=== PATIENT | female | born 1965 | race Caucasian/White ===

== ENCOUNTER 2024-12-01 07:57 | Outpatient (CLI) | payer BC, OTHER, SELFPAY ==
--- NOTE | ~2024-12-01 | MM_ITS ---
EXAMINATION: MM screening gill BI w vinayak HISTORY: Screening mammogram TECHNIQUE: Craniocaudal and mediolateral oblique 3-D tomosynthesis images were obtained and synthetic 2-D images were generated. CAD analysis was submitted and interpreted. COMPARISON: 01/23/2019 BREAST PARENCHYMAL COMPOSITION:Not Dense. There are scattered areas of fibroglandular density. FINDINGS: No suspicious mass, calcification, or architectural distortion are identified in either oneil ast to suggest malignancy. There has been no suspicious interval change. IMPRESSION: No mammographic evidence of malignancy. Recommend routine screening mammography in one year. BI-RADS Category 1: Negative Reviewed, dictated and finalized at location .
--- OUTSIDE RECORDS SUMMARY | 2024-12-01 08:13 | XMS_ITS | Clinical Summary ---
Author Organization [facility] [employer] Address [address] [place] [address] Care Team Providers Care Machine Hostler Name Role Phone Trinity Goldstein APRN-REGIONAL RECRUITER Primary Care Provider [phone] Source Comments [facility] [employer],non-owned Affiliates and Associated Physician Practices is amultiple site organization consisting of ambulatory clinics and hospital sitesin [place], [place], [place] and [place]. This disclosure is being madepursuant to the Care Everywhere program and may not contain all information available regarding this patient. Last updated 18.[facility] [employer] Allergies No known active allergies Medications * Be aware that medications may not be up to date on this document. Alwaysverify current medications with the patient. Medication Sig Dispensed Refills Start Date End Date Status omeprazole EC (PriLOSEC OTC) 20 MG tabletIndications:Hea rtburn Take 1 (one) tablet by mouth as needed for Heartburn Reasons: Heartburn Active Pediatric Multivitamins-Iron ([facility] Chewable Childrens Vitamin) 18 MG CHEW Active Immunizations Name Administration Dates Next Due Covid Pfizer primary monoval ent 12+ yr 0.3mL Purple cap 11/07/2020,10/14/2020 Family History Medical History Relation Name Comments Hypertension Father Arthritis - Osteo Mother Relation Name Status Comments Brother Alive Father Alive Mother Alive Sister Alive Social History Tobacco Use Types Packs/Day Years Used Date Smoking Tobacco: Never Smokeless Tobacco: Never Tobacco Cessation:Counseling Given: No Alcohol Use Standard Drinks/Week Comments Yes 3 (1 standard drink = 0.6 oz pur e alcohol) social weekly Sex and Gender Information Value Date Recorded Sex Assigned at Not on file Gender Identity Not on file Sexual Orientation Not on file Last Filed Vital Signs Vital Sign Reading Time Taken Comments Blood Pressure 120/84 02/05/2023 11:01 AM CDT Pulse 93 02/05/2023 11:01 AM CDT Temperature 36.7 C (98 F) 02/05/2023 11:01 AM CDT Respiratory Rate 18 02/05/2023 11:01 AM CDT Oxygen Saturation 98% 02/05/2023 11:01 AM CDT Inhaled Oxygen Concentration - - Weight 77.1 kg (170 lb) 02/05/2023 11:01 AM CDT Height 170.2 cm (5' 7 ) 02/05/2023 11:01 AM CDT Body Mass Index 26.63 02/05/2023 11:01 AM CDT Plan of Treatment Health Maintenance Due Date Last Done Comments COLOGUARD (AGES 45-75) - COLON CA SCREENING 1965 COLON MONITORING 1965 COLONOSCOPY - COLON CA SCREENING 1965 CT COLONOGRAPHY - COLON CA SCREENING 1965 Colorectal Cancer Screening 1965 FIT - COLON CA SCREENING 1965 FLEX SIG - COLON CA SCREENING 1965 PAP SMEAR 1965 HIV SCREENING 1980 DTAP/TDAP/TD VACCINES (1 - Tdap) 1984 HEPATITIS B VACCINE (1 of 3 - 19+ 3-dose series) 1984 PNEUMOCOCCAL VACCINE 50+ (1 of 1 - PCV) 2015 ZOSTER VACCINE (1 of 2) 2015 MAMMOGRAM 05/29/2022 05/29/2020, 07/21, 07/14/2017 COVID-19 VACCINE ( season) 2024 06/04/2022, 09/16/2021, 11/07/2020, Additional history exists INFLUENZA VACCINE (#1) 2024 06/27/2021 DEPRESSION SCREENING 09/20/2024 SCREENING FOR DIABETES 02/05/2026 , 02/05/2023, 07/13/2019, Additional history exists LIPID TESTING 02/06/2028 02/05/2023, 06/21, 07/29/2018, Additional history exists HEPATITIS C SCREENING Completed 02/05/2023 HIB VACCINE Aged Out No longer eligi ble based on patient's age to complete this topic HPV VACCINE Aged Out No longer eligi ble based on patient's age to complete this topic MENINGOCOCCAL (Group B) VACCINE SHARED DECISION-MAKING Aged Out No longer eligible based on patient's age to complete this topic MENINGOCOCCAL GROUPS A/C/Y/W VACCINE Aged Out No longer eligible based on patient's age to complete this topic PNEUMOCOCCAL VACCINE Aged Out No long er eligible based on patient's age to complete this topic Procedures Procedure Name Priority Date/Time Associated Diagnosis Comments COMPREHENSIVE METABOLIC PANEL Routine 02/05/2023 7:03 AM CDT Transplant donor evaluation LIPID PROFILE Routine 02/05/2023 7:03 AM CDT Transplant donor evaluation HEPATITIS C AB SCREEN RFLX NAAT QUANT STAT 02/05/2023 7:03 AM CDT Transplant donor evaluation MAMMO BILAT SCREENING Routine 05/29/2020 9:25 AM CDT Screening breast examination from Last 3 Months or Most Recently Relevant to Health Maintenance Results * HEPATITIS C AB SCREEN RFLX NAAT QUANT (02/05/2023 7:03 AM CDT) Hepatitis C Antibody Non-react ankit Non-reac tive 02/05/2023 9:06 AM CDT [facility] Comment:Hepatitis C Antibody screen indicates no serologic evidence of past or current infection with Hepatitis C Virus. Patients with unexplained liver disease who are immunocompromised or suspected of having acute Hepatitis C infection may benefit from Nucleic Acid Test (CARLOS) for Hepatitis C Viral RNA to confirm Hepatitis C status. Blood BLOOD SPECIMEN / Unknown Lab Venipuncture / Unknown 02/05/2023 7:03 AM CDT 02/05/2023 8:21 AM CDT Sean Archibald MD LAB - CHEMISTRY ORDERABLES [facility] [address] [place] [phone], [facility] [phone] * (ABNORMAL) COMPREHENSIVE METABOLIC PANEL (02/05/2023 7:03 AM [facility]) BUN 11 7 - 26 mg/dL 02/05/2023 8:57 AM [facility] Creatinine 0.67 0.56 - 0.96 mg/dL 02/05/2023 8:57 AM [facility] Sodium 140 136 - 145 mmol/L 02/05/2023 8:57 AM [facility] Potassium 3.7 3.5 - 4.5 mmol/L 02/05/2023 8:57 AM [facility] Chloride 108(H) 98 - 107 mmol/L 02/05/2023 8:57 AM [facility] CO2 21(L) 22 - 29 mmol/L 02/05/2023 8:57 AM [facility] Glucose 88 70 - 115 mg/dL 02/05/2023 8:57 AM [facility] Calcium 9.4 8.4 - 10.2 mg/dL 02/05/2023 8:57 AM [facility] Protein Total 6.5 6.0 - 8.3 g/dL 02/05/2023 8:57 AM [facility] Albumin 3.8 3.4 - 5.0 g/dL 02/05/2023 8:57 AM [facility] Bilirubin Total 0.7 0.2 - 1.2 mg/dL 02/05/2023 8:57 AM [facility] Alkaline Phosphatase 62 40 - 150 U/L 02/05/2023 8:57 AM [facility] ALT 30 5 - 55 U/L 02/05/2023 8:57 AM [facility] AST 22 5 - 34 U/L 02/05/2023 8:57 AM [facility] Anion Gap 15 8 - 18 02/05/2023 8:57 AM [facility] BUN/Creatinine Ratio 16 7 - 23 02/05/2023 8:57 AM [facility] Osmolality Calculated 289 270 - 300 mOsm/kg 02/05/2023 8:57 AM [facility] Albumin/Globulin Ratio 1.4 1.1 - 2.3 02/05/2023 8:57 AM [facility] eGFR by CKD-EPI >90 >=90 mL/min/1.7 3 m2 02/05/2023 8:57 AM [facility] Blood BLOOD SPECIMEN / Unknown Lab Venipuncture / Unknown 02/05/2023 7:03 AM CDT 02/05/2023 8:26 AM CDT Sean Archibald MD LAB - CHEMISTRY ORDERABLES Performing Organization Address City/[facility]/ZIP Co de Phone Number [address] [address], [facility] [phone] * (ABNORMAL) LIPID PROFILE (02/05/2023 7:03 AM CDT) Cholesterol Total 230(H) <200 mg/dL 02/05/2023 8:57 AM [facility] HDL 56 >40 mg/dL 02/05/2023 8:57 AM [facility] Comment: ATP III Classification of HDL Cholesterol: <40 mg/dL: Considered a major risk factor. >60 mg/dL: Considered a negative risk factor. LDL Calculated 143(H) <100 mg/dL 02/05/2023 8:57 AM [facility] Comment: ATP III Classification of LDL Cholesterol: <100 mg/dL: Optimal 100 - 129 mg/dL: Near Optimal/Above Optimal 130 - 159 mg/dL: Borderline High 160 - 189 mg/dL: High >190 mg/dL: Very High Triglycerides 157(H) <150 mg/dL 02/05/2023 8:57 AM [facility] Comment: ATP III Classification of Triglycerides: <150 mg/dL: Normal 150 - 199 mg/dL: Borderline High 200 - 400 mg/dL: High >500 mg/dL: Very High Blood BLOOD SPECIMEN / Unknown Lab Venipuncture / Unknown 02/05/2023 7:03 AM CDT 02/05/2023 8:26 AM CDT Sean Archibald MD LAB - CHEMISTRY ORDERABLES [facility] [address] [address], [facility] [phone] * MAMMO BILAT SCREENING (05/29/2020 9:25 AM CDT) Anatomical Region Laterality Modality Breast Bilateral Mammography 05/30/2020 10:3 7 AM CDT Impressions 05/30/2020 11:56 AM CDT IMPRESSION: No mammographic evidence of malignancy. ASSESSMENT: BI-RADS Category 1: Negative mammogram. RECOMMENDATION: Bilateral screening mammogram in one year. Report dictated by Wily Guido DO, MPH (vice president & general manager [employer] [place]). I, Dr. EZEQUIEL SERRANO M.D. have personally reviewed and interpreted this examination/study. This report was electronically signed by EZEQUIEL SERRANO M.D. on 05/30/2020 11:56 AM . Narrative 05/30/2020 11:56 AM CDT BILATERAL SCREENING MAMMOGRAM DATE: 05/29/2020 9:25 AM. COMPARISON: Multiple prior mammograms, most recently 2016 and from [facility] dated 2006. HISTORY: Screening mammogram. TECHNIQUE: Images were performed using 3D tomosynthesis images with reconstructed/synthetic 2D images and CAD analysis. BREAST COMPOSITION: There are scattered areas of fibroglandular density. FINDINGS: There is no suspicious mass, clustered microcalcification, or architectural distortion in either breast on 2D or 3D images. There has been no change in the mammographic appearance compared with the prior study. Jose J Corcoran MD MAMMO ORDERABLES from Last 3 Months or Most Recently Relevant to Health Maintenance Care Teams Machine Hostler Relationship Specialty Start Date End Date Trinity Goldstein, BUILDING TECH-REGIONAL RECRUITER [address] [place] [address] PCP - General Nurse Practitioner 02/05/23
--- OUTSIDE RECORDS SUMMARY | 2024-12-01 08:13 | XMS_ITS | Encounter Summary ---
Author Organization [facility] Address [address] [place] [address] Care Team Providers Care Heat Treater Name Role Phone Rayo Sierra MD Primary Care Provider [phone] Trinity Goldstein Primary Care Provider [phone] Encounter Details Date Type Department Care Team (Late st Contact Info) Description 06/20/2018 Lab Requisition [facility] [address] [place] [address] Unlisted, Ordering Provider, Social History Tobacco Use Types Packs/Day Years Used Date Smoking Tobacco: Never Assessed Sex and Gender Information Value Date Recorded Sex Assigned at Not on file Gender Identity Not on file Sexual Orientation Not on file documented as of this encounter Plan of Treatment Not on file documented as of this encounter Visit Diagnoses Not on filedocumented in this encounter Care Teams Heat Treater Relationship Specialty Start Date End Date Rayo Sierra MD [address] [place] [address] PCP - General Internal Medicine 11/27/22 02/04/23 Trinity Goldstein, MARGY-WELDING ROD COATER [address] [place] [phone] PCP - General Nurse Practitioner 02/05/23 documented as of this encounter
--- OUTSIDE RECORDS SUMMARY | 2024-12-01 08:13 | XMS_ITS | Referral Summary ---
Author Organization [facility] [employer] Address [address] [place] [address] Care Team Providers Care X Ray Equipment Mechanic Name Role Phone Trinity Goldstein APRN-REBAR FABRICATOR Primary Care Provider [phone] Source Comments [facility] [employer],non-owned Affiliates and Associated Physician Practices is amultiple site organization consisting of ambulatory clinics and hospital sitesin [place], [place], [place] and [place]. This disclosure is being madepursuant to the Care Everywhere program and may not contain all information available regarding this patient. Last updated 18.[facility] [employer] Allergies No known active allergies Medications * [...] ent 12+ yr 0.3mL Purple cap 11/07/2020,10/14/2020 Social History Tobacco Use Types Packs/Day Years [...] 02/05/2023 11:01 AM CDT Plan of Treatment Not on file Procedures Procedure Name Priority Date/Time Associated Diagnosis [...] ankit Non-reac tive 02/05/2023 9:06 AM CDT [facility] Comment:Hepatitis C Antibody screen indicates no [...] Sean Archibald MD LAB - CHEMISTRY ORDERABLES [facility] [address] [place] [address], [facility] [phone] * (ABNORMAL) COMPREHENSIVE METABOLIC PANEL (02/05/2023 7:[address] [facility]) BUN 11 7 - 26 mg/dL 02/05/2023 8:57 AM [facility] Creatinine 0.67 0.56 - 0.96 mg/dL 02/05/2023 8:57 AM [facility] Sodium 140 136 - 145 mmol/L 02/05/2023 8:57 AM [facility] Potassium 3.7 3.5 - 4.5 mmol/L 02/05/2023 8:57 AM [facility] Chloride 108(H) 98 - 107 mmol/L 02/05/2023 8:57 AM [facility] CO2 21(L) 22 - 29 mmol/L 02/05/2023 8:57 AM [facility] Glucose 88 70 - 115 mg/dL 02/05/2023 8:57 AM [facility] Calcium 9.4 8.4 - 10.2 mg/dL 02/05/2023 8:57 AM [facility] Protein Total 6.5 6.0 - 8.3 g/dL 02/05/2023 8:57 AM [facility] Albumin 3.8 3.4 - 5.0 g/dL 02/05/2023 8:57 AM [facility] Bilirubin Total 0.7 0.2 - 1.2 mg/dL 02/05/2023 8:57 AM [facility] Alkaline Phosphatase 62 40 - 150 U/L 02/05/2023 8:57 AM [facility] ALT 30 5 - 55 U/L 02/05/2023 8:57 AM [facility] AST 22 5 - 34 U/L 02/05/2023 8:57 AM [facility] Anion Gap 15 8 - 18 02/05/2023 8:57 AM [facility] BUN/Creatinine Ratio 16 7 - 23 02/05/2023 8:57 AM [facility] Osmolality Calculated 289 270 - 300 mOsm/kg 02/05/2023 8:57 AM [facility] Albumin/Globulin Ratio 1.4 1.1 - 2.3 02/05/2023 8:57 AM [facility] eGFR by CKD-EPI >90 >=90 mL/min/1.7 3 m2 02/05/2023 8:57 AM [facility] Blood BLOOD SPECIMEN / Unknown Lab Venipuncture / Unknown 02/05/2023 7:03 AM CDT 02/05/2023 8:26 AM CDT Sean Archibald MD LAB - CHEMISTRY ORDERABLES [facility] [address] [place] [address], [facility] [phone] * (ABNORMAL) LIPID PROFILE (02/05/2023 7:03 AM CDT) Cholesterol Total 230(H) <200 mg/dL 02/05/2023 8:57 AM [facility] HDL 56 >40 mg/dL 02/05/2023 8:57 AM [facility] Comment: ATP III Classification of HDL Cholesterol: <40 mg/dL: Considered a major risk factor. >60 mg/dL: Considered a negative risk factor. LDL Calculated 143(H) <100 mg/dL 02/05/2023 8:57 AM [facility] Comment: ATP III Classification of LDL Cholesterol: <100 mg/dL: Optimal 100 - 129 mg/dL: Near Optimal/Above Optimal 130 - 159 mg/dL: Borderline High 160 - 189 mg/dL: High >190 mg/dL: Very High Triglycerides 157(H) <150 mg/dL 02/05/2023 8:57 AM [facility] Comment: ATP III Classification of Triglycerides: <150 mg/dL: Normal 150 - 199 mg/dL: Borderline High 200 - 400 mg/dL: High >500 mg/dL: Very High Blood BLOOD SPECIMEN / Unknown Lab Venipuncture / Unknown 02/05/2023 7:03 AM CDT 02/05/2023 8:26 AM CDT Sean Archibald MD LAB - CHEMISTRY ORDERABLES [place] [address] [place] [address], [facility] [phone] * MAMMO BILAT SCREENING (05/29/2020 9:25 AM CDT) Anatomical Region Laterality Modality Breast Bilateral Mammography 05/30/2020 10:3 7 AM CDT Impressions 05/30/2020 11:56 AM CDT IMPRESSION: No mammographic evidence of malignancy. ASSESSMENT: BI-RADS Category 1: Negative mammogram. RECOMMENDATION: Bilateral screening mammogram in one year. Report dictated by Wily Guido DO, MPH (global consumer sector vice president). I, Dr. EZEQUIEL SERRANO M.D. have personally reviewed and interpreted this examination/study. This report was electronically signed by EZEQUIEL SERRANO M.D. on 05/30/2020 11:56 AM . Narrative 05/30/2020 11:56 AM CDT BILATERAL SCREENING MAMMOGRAM DATE: 05/29/2020 9:25 AM. COMPARISON: Multiple prior mammograms, most recently 2016 and from [facility] dated 2006. HISTORY: Screening [...] Recently Relevant to Health Maintenance Care Teams X Ray Equipment Mechanic Relationship Specialty Start Date End Date Trinity Goldstein APRN-REBAR FABRICATOR [address] [place] [address] PCP - General Nurse Practitioner 02/05/23
--- OUTSIDE RECORDS SUMMARY | 2024-12-01 08:13 | XMS_ITS | Encounter Summary ---
Author Organization [facility] Address [address] [place] [address] Care Team Providers Care Electro Mechanical Designer Name Role Phone Rayo Sierra MD Primary Care Provider [phone] Trinity Goldstein APRN-MASS SPECTROMETRY MANAGER Primary Care Provider [phone] Encounter Details Date Type Department Care Team (Late st Contact Info) Description 07/27/2018 Lab Requisition [facility] [address] [place] [phone] Unlisted, Ordering Provider, Social History Tobacco Use Types Packs/Day Years Used Date Smoking Tobacco: Never Assessed Sex and Gender Information Value Date Recorded Sex Assigned at Not on file Gender Identity Not on file Sexual Orientation Not on file documented as of this encounter Plan of Treatment Not on file documented as of this encounter Procedures Procedure Name Priority Date/Time Associated Diagnosis Comments GLUCOSE VITALITY Routine 07/29/2018 9:46 AM ER TECH HEMOGLOBIN A1C Routine 07/29/2018 9:46 AM ER TECH LIPID PROFILE Routine 07/29/2018 9:46 AM ER TECH documented in this encounter Results * HEMOGLOBIN A1C (07/29/2018 9:46 AM ER TECH) Hemoglobin A1c 5.3 4.4 - 6.3 % 07/29/2018 2:22 PM [facility] Estimated Average Glucose 105 mg/dL 07/29/2018 2:22 PM [facility] Comment: HbA1c Interpretation: Treatment target values recommended by ADA and other clinical organizations should be used to evaluate metabolic control in patients. Treatment Target Values: Normal : < 5.7% Pre-diabetes: 5.7-6.4% Diabetes: Equal to or greater than 6.5% Reference: [place] [employer] Standards of Care in Diabetes -2014 In patients 70 years and older consider HbA1c target range of 7.0-7.5% Reference: Diabetes Mellitus in Older People: Position Statement on behalf of the International Association of Gerontology and Geriatrics (IAGG), the Diabetes Working Libertarian for Older People (EDWPOP), and the International Task Force of Experts in Diabetes. Damian Carballo et al. J [place] [employer]. 2012 Test results diagnostic of diabetes should be repeated for confirmation. The Tosoh G8 assay for the measurement of HbA1c is a National Glycohemoglobin Standardization Program (NGSP)certified method. Results for patients with HbE disease should be interpreted with caution as this hemoglobinopathy has been shown to interfere with the Tosoh G8 assay. Blood BLOOD SPECIMEN / Unknown 07/29/2018 9:46 AM ER TECH 07/29/2018 12:17 PM ER TECH Ordering Provider Unlisted MD LAB - CHEM ISTRY ORDERABLES [address] [phone] * (ABNORMAL) LIPID PROFILE (07/29/2018 9:46 AM ER TECH) Cholesterol Total 272(H) <200 mg/dL 07/29/2018 12:47 PM [facility] HDL 86 >40 mg/dL 07/29/2018 12:47 PM [facility] Comment: ATP III Classification of HDL Cholesterol: <40 mg/dL: Considered a major risk factor. >60 mg/dL: Considered a negative risk factor. LDL Calculated 161(H) <100 mg/dL 07/29/2018 12:47 PM [facility] Comment: ATP III Classification of LDL Cholesterol: <100 mg/dL: Optimal 100 - 129 mg/dL: Near Optimal/Above Optimal 130 - 159 mg/dL: Borderline High 160 - 189 mg/dL: High >190 mg/dL: Very High Triglycerides 127 <150 mg/dL 07/29/2018 12:47 PM ER TECH [facility] Comment: ATP III Classification of Triglycerides: <150 mg/dL: Normal 150 - 199 mg/dL: Borderline High 200 - 400 mg/dL: High >500 mg/dL: Very High Blood BLOOD SPECIMEN / Unknown 07/29/2018 9:46 AM ER TECH 07/29/2018 12:17 PM ER TECH Ordering Provider Unlisted LAB - CHEM ISTRY ORDERABLES [address] [phone] * GLUCOSE VITALITY (07/29/2018 9:46 AM ER TECH) Glucose 94 70 - 115 mg/dL 07/29/2018 12:39 PM ER TECH [facility] Blood BLOOD SPECIMEN / Unknown 07/29/2018 9:46 AM ER TECH 07/29/2018 12:17 PM ER TECH Ordering Provider Unlisted LAB - CHEM ISTRY ORDERABLES [address] [phone] documented in this encounter Visit Diagnoses Not on filedocumented in this encounter Care Teams Electro Mechanical Designer Relationship Specialty Start Date End Date Rayo Sierra MD [address] [place] [phone] PCP - General Internal Medicine 11/27/22 02/04/23 Trinity Goldstein, POLE CLASSIFIER-MASS SPECTROMETRY MANAGER [address] [place] [phone] PCP - General Nurse Practitioner 02/05/23 documented as of this encounter
--- OUTSIDE RECORDS SUMMARY | 2024-12-01 08:13 | XMS_ITS | Patient Health Summary ---
Author Organization [facility] Address [address] [address] Care Team Providers Care Substitute Crossing Guard Name Role Phone Trinity Goldstein APRN-MICHAEL Primary Care Provider [phone] Note from [facility],non-owned Affiliates and Associated Physician Practices is amultiple site organization consisting of ambulatory clinics and hospital sitesin [place], [place], [place] and [place]. This disclosure is being madepursuant to the Care Everywhere program and may not contain all information available regarding this patient. Last updated 18.[facility] Allergies No known active allergies Medications * Be aware that medications may not be up to date on this document. Alwaysverify current medications with the patient. * omeprazole EC (PriLOSEC OTC) 20 MG tablet Take 1 (one) tablet by mouth as needed for Heartburn Reasons: Heartburn * Pediatric Multivitamins-Iron ([employer] Chewable Childrens Vitamin) 18 MG CHEW Immunizations * Covid Pfizer primary monovalent 12+ yr 0.3mL Purple cap(Given 11/07/2020, 10/14/2020) Social History Tobacco Use Types Packs/Day Years [...] Mass Index 26.63 02/05/2023 11:01 AM CDT Procedures * CARDIAC EKG ORDER(Performed 02/10/2023) * ECHO STRESS EXERCISE COLOR FLOW AND DOPPLER W CONTRAST(Performed 02/05/2023) Performed for Transplant donor evaluation * CT ANGIO ABDOMEN PELVIS(Performed 02/05/2023) Performed for Transplant donor evaluation * CREATININE - POCT INTERFACED(Performed 02/05/2023) * TYPE + SCREEN PANEL(Performed 02/05/2023) Performed for Transplant donor evaluation * CYSTATIN C REFLEX(Performed 02/05/2023) Performed for Transplant donor evaluation * CREATININE BLOOD(Performed 02/05/2023) Performed for Transplant donor evaluation * [place] VIRUS ANTIBODY IGG/IGM PANEL(Performed 02/05/2023) Performed for Transplant donor evaluation * URINE DRUG SCREEN IMMUNOASSAY(Performed 02/05/2023) Performed for Transplant donor evaluation * URINALYSIS W/MICROSCOPIC NO CULTURE(Performed 02/05/2023) Performed for Transplant donor evaluation * URIC ACID BLOOD(Performed 02/05/2023) Performed for Transplant donor evaluation * TRYPANOSOMA ANTIBODY IGG(Performed 02/05/2023) Performed for Transplant donor evaluation * SYPHILIS ANTIBODY CASCADING REFLEX(Performed 02/05/2023) Performed for Transplant donor evaluation * STRONGYLOIDES ANTIBODY IGG(Performed 02/05/2023) Performed for Transplant donor evaluation * CREATININE CLEARANCE URINE(Performed 02/05/2023) Performed for Transplant donor evaluation * QUANTIFERON-TB GOLD PLUS 4-TUBE(Performed 02/05/2023) Performed for Transplant donor evaluation * PTT [facility](Performed 02/05/2023) Performed for Transplant donor evaluation * PT-INR [facility](Performed 02/05/2023) Performed for Transplant donor evaluation * PHOSPHORUS BLOOD(Performed 02/05/2023) Performed for Transplant donor evaluation * NICOTINE + METABOLITES BLOOD(Performed 02/05/2023) Performed for Transplant donor evaluation * MICROALB/CREAT RATIO URINE RANDOM PANEL(Performed 02/05/2023) Performed for Transplant donor evaluation * LIPID PROFILE(Performed 02/05/2023) Performed for Transplant donor evaluation * HIV/HCV/HBV CARLOS DONOR(Performed 02/05/2023) Performed for Transplant donor evaluation * HIV 1/0/2 RFLX TO WB DONOR(Performed 02/05/2023) Performed for Transplant donor evaluation * HEPATITIS C AB SCREEN RFLX NAAT QUANT(Performed 02/05/2023) Performed for Transplant donor evaluation * HEPATITIS B SURFACE ANTIGEN W RFLX CONFIRMATION(Performed 02/05/2023) Performed for Transplant donor evaluation * HEPATITIS B SURFACE ANTIBODY(Performed 02/05/2023) Performed for Transplant donor evaluation * HEPATITIS B CORE ANTIBODY TOTAL(Performed 02/05/2023) Performed for Transplant donor evaluation * HEMOGLOBIN A1C(Performed 02/05/2023) Performed for Transplant donor evaluation * ALEKSEY-VARGAS VIRUS AB VIRAL CAPSID IGG/IGM(Performed 02/05/2023) Performed for Transplant donor evaluation * CYTOMEGALOVIRUS ANTIBODY IGM BLOOD(Performed 02/05/2023) Performed for Transplant donor evaluation * CYTOMEGALOVIRUS ANTIBODY IGG BLOOD(Performed 02/05/2023) Performed for Transplant donor evaluation * CYSTATIN C WITH EGFR(Performed 02/05/2023) Performed for Transplant donor evaluation * COMPREHENSIVE METABOLIC PANEL(Performed 02/05/2023) Performed for Transplant donor evaluation * ALCOHOL ETHYL BLOOD(Performed 02/05/2023) Performed for Transplant donor evaluation * CULTURE URINE(Performed 02/05/2023) Performed for Transplant donor evaluation * SARS-COV-2 (COVID-19) IN HOUSE(Performed 06/12/2020) Performed for Exposure to SARS-associated coronavirus * MAMMO BILAT SCREENING(Performed 05/29/2020) Performed for Screening breast examination * HEMOGLOBIN A1C(Performed 07/13/2019) * LIPID PROFILE(Performed 07/13/2019) * GLUCOSE VITALITY(Performed 07/13/2019) * HEMOGLOBIN A1C(Performed 07/29/2018) * LIPID PROFILE(Performed 07/29/2018) * GLUCOSE VITALITY(Performed 07/29/2018) * US BREAST BILATERAL LTD(Performed 08/06/2017) * MAMMO BILAT DIAGNOSTIC(Performed 08/06/2017) * HEMOGLOBIN A1C(Performed 07/16/2017) * VITALITY SCREEN (BEAKER)(Performed 07/16/2017) * LIPID PROFILE(Performed 07/16/2017) * GLUCOSE VITALITY(Performed 07/16/2017) * MAMMO BILAT SCREENING(Performed 07/14/2017) Results * CARDIAC EKG ORDER (02/10/2023 2:03 PM CDT) Narrative 02/10/2023 2:03 PM CDT Ordered by an unspecified provider. Scanned Document CARDIAC SERVICES ORD ERABLES * ECHO STRESS EXERCISE COLOR FLOW AND DOPPLER W CONTRAST (02/05/2023 9:58 AM CDT) Target HR 139 bpm [facility] Max Age Predicted HR 163 bpm [facility] Base ST Depression (mm) 0 mm [facility] Angina Index [address] [facility] [address] Depression (mm) 0 mm [facility] Anatomical Region Laterality Modality Ultrasound Narrative 02/05/2023 3:04 PM CDT Left Ventricle: Left ventricle size is normal. Normal wall thickness. Normal systolic function with a visually estimated EF of 65 - 70%. Normal wall motion. Diastolic function is indeterminate due to discordant parameters. Right Ventricle: Normal systolic function. Tricuspid Valve: Trace regurgitation. The pulmonary artery systolic pressure is normal. Stress ECG: No clinically relevant ST deviation was noted. Portions of the ECG were uninterpretable due to an artifact. Stress: A Paul protocol stress test was performed. Overall, the patient's exercise capacity was normal for their age. The patient achieved the target heart rate. Blood pressure demonstrated a normal response and heart rate demonstrated a normal response to stress. The patient's heart rate recovery was normal. Post-stress: The left ventricle systolic function is normal post-stress. The post-stress echo showed normal wall motion. Post-stress Impression: This study shows a low prognostic risk. The ECG and Echo portions of the stress study are concordant with no evidence of inducible myocardial ischemia. Left Ventricle Left ventricle size is normal. Normal wall thickness. Normal systolic function with a visually estimated EF of 65 - 70%. Normal wall motion. Diastolic function is indeterminate due to discordant parameters. Right Ventricle Right ventricle size is normal. Normal systolic function. Left Atrium Left atrium size is normal. Right Atrium Right atrium size is normal. IVC/SVC IVC diameter is greater than 21 mm and decreases greater than 50% during inspiration; therefore the estimated right atrial pressure is intermediate (~8 mmHg). Mitral Valve Valve structure is normal. No restricted motion. No regurgitation. No stenosis. Tricuspid Valve Valve structure is normal. No restricted motion. Trace regurgitation. The pulmonary artery systolic pressure is normal. No stenosis. Aortic Valve Valve structure is trileaflet. No restricted motion. No regurgitation. No stenosis. Pulmonic Valve Valve structure is normal. No restricted motion. Trace regurgitation. No stenosis. Pulmonary artery was not well visualized. Ascending Aorta Normal sized sinus of Valsalva (aortic root) and ascending aorta. Pericardium No pericardial effusion. Study Details Study quality was good. A complete 2D, color Doppler, spectral Doppler, strain and M-mode echocardiogram was performed. The apical, parasternal, subcostal and suprasternal views were obtained. Definity ultrasound enhancing agent used. Patient exhibited sinus rhythm. Resting ECG ECG is normal. Resting ECG shows no clinically relevant ST-segment deviation. The ECG shows sinus bradycardia. Stress Findings A Paul protocol stress test was performed. Overall, the patient's exercise capacity was normal for their age. The patient experienced no angina during the test. The patient achieved the target heart rate. The patient reported no symptoms during the stress test. Blood pressure demonstrated a normal response and heart rate demonstrated a normal response to stress. The patient's heart rate recovery was normal. Stress ECG No clinically relevant ST deviation was noted. Arrhythmias during stress: rare PVCs. There were no arrhythmias during recovery. The ECG was negative for ischemia. Portions of the ECG were uninterpretable due to an artifact. Echo Post Stress Left ventricle cavity appears normal post-stress. The left ventricle systolic function is normal post-stress. The post-stress echo showed normal wall motion. Study Impression This study shows a low prognostic risk. The ECG and Echo portions of the stress study are concordant with no evidence of inducible myocardial ischemia. Wall Scoring Baseline Score Index: 1.00 The left ventricular wall motion is normal. Wall Scoring Post Stress Score Index: 1.00 The left ventricular wall motion is normal. Sean Archibald MD ECHO CUPID * CT ANGIO ABDOMEN PELVIS (02/05/2023 7:31 AM CDT) Anatomical Region Laterality Modality Abdomen, Pelvis Computed Tomogra phy 02/05/2023 8:0 9 AM CDT Impressions 02/05/2023 11:25 AM CDT Impression: 1.No acute process identified in the abdomen or pelvis. 2.Kidney measurements provided for potential kidney donor. > Dictated by Felice Whyte DO (vice president medical affairs). > Dictated by Felice Whyte MD ([employer]) 02/05/2023 8:09 AM I, Geo Hawkins MD have personally reviewed and interpreted this examination/study. > Interpreting Provider: Geo Hawkins MD on 02/05/2023 11:25 AM Narrative 02/05/2023 11:25 AM CDT PROCEDURE: CT ANGIO ABDOMEN PELVIS, DATE/TIME OF EXAM: 02/05/2023 7:33 AM, LOCATION [facility] INDICATION: Z00.5: Transplant donor evaluation COMPARISON: None. TECHNIQUE: CT of the abdomen and pelvis was performed prior to and following the uneventful administration of 100 mL of Isovue 370 intravenous contrast according to an angiographic protocol. Three dimensional postprocessing was performed by the technologist and sent to the workstation for review. Findings: Abdominal aorta: There is no aortic dissection, intramural hematoma, penetrating atherosclerotic ulcer, or aneurysm. The aorta is normal in course and caliber. Abdominal aortic branches: Celiac axis: Patent without significant focal stenosis. Superior mesenteric artery: Patent without significant focal stenosis. Inferior mesenteric artery: Patent without significant focal stenosis. Right renal artery: Patent without significant focal stenosis. Left renal artery: Patent without significant focal stenosis. Right common iliac artery: Patent without significant focal stenosis. Left common iliac artery: Patent without significant focal stenosis. Lower Chest: Minimal dependent atelectasis bilaterally. Liver: Multiple subcentimeter hypoattenuating hepatic lesions are too small to characterize, but likely represent hepatic cysts. There is focal fatty infiltration along the falciform ligament anterior to the liver in hepatic segment IVb. There is also fatty infiltration in the periportal area within hepatic segment 4A. Gallbladder and Bile Ducts: Normal. Spleen: Normal. Pancreas: Normal. Adrenals: Normal. Kidneys: Right Kidney: Number of arteries: 1 Number of veins: 1 Number of ureters: 1 Kidney height: 11.5 cm Kidney length: 5.1 cm Kidney width: 4.4 cm Kidney volume (mL/cc): 177 mL Renal artery has early bifurcation(<10mm from aorta): No Left Kidney: Number of arteries: 2 Number of veins: 1 Number of ureters: 1 Kidney height: 10.2 cm Kidney length: 5.0 cm Kidney width: 4.9 cm Kidney volume (mL/cc): 177 mL Renal artery has early bifurcation(<10mm from aorta): No Gastrointestinal: The stomach and visualized loops of large and small bowel are unremarkable. Normal appendix. Mesentery/Peritoneum/Retroperitoneum: No free intraperitoneal air. No free fluid in the abdomen or pelvis. Bladder: The bladder is partially distended. Reproductive Organs: The uterus is normal. Bones: Bone windows demonstrate no suspicious lytic or blastic lesions. The visible osseous structures are intact. Soft tissues: Normal. Procedure Note Geo Hawkins MD - 02/05/2023 PROCEDURE: CT ANGIO ABDOMEN PELVIS, DATE/TIME OF EXAM: 02/05/2023 7:33AM, LOCATION [facility] INDICATION: Z00.5: Transplant donor evaluation COMPARISON: None. TECHNIQUE: CT of the abdomen and pelvis was performed prior to and following the uneventful administration of 100 mL of Isovue 370intravenous contrast according to an angiographic protocol. Three dimensional postprocessing was performed by the technologist and sent to the workstation for review. Findings: Abdominal aorta: There is no aortic dissection, intramural hematoma, penetrating atherosclerotic ulcer, or aneurysm. The aorta is normal in course and caliber. Abdominal aortic branches: Celiac axis: Patent without significant focal stenosis. Superior mesenteric artery: Patent without significant focal stenosis. Inferior mesenteric artery: Patent without significant focal stenosis. Right renal artery: Patent without significant focal stenosis. Left renal artery: Patent without significant focal stenosis. Right common iliac artery: Patent without significant focal stenosis. Left common iliac artery: Patent without significant focal stenosis. Lower Chest: Minimal dependent atelectasis bilaterally. Liver: Multiple subcentimeter hypoattenuating hepatic lesions are too small to characterize, but likely represent hepatic cysts. There is focal fatty infiltration along the falciform ligament anterior to the liver inhepatic segment IVb. There is also fatty infiltration in the periportal areawithin hepatic segment 4A. Gallbladder and Bile Ducts: Normal. Spleen: Normal. Pancreas: Normal. Adrenals: Normal. Kidneys: Right Kidney: Number of arteries: 1 Number of veins: 1 Number of ureters: 1 Kidney height: 11.5 cm Kidney length: 5.1 cm Kidney width: 4.4 cm Kidney volume (mL/cc): 177 mL Renal artery has early bifurcation(<10mm from aorta): No Left Kidney: Number of arteries: 2 Number of veins: 1 Number of ureters: 1 Kidney height: 10.2 cm Kidney length: 5.0 cm Kidney width: 4.9 cm Kidney volume (mL/cc): 177 mL Renal artery has early bifurcation(<10mm from aorta): No Gastrointestinal: The stomach and visualized loops of large and small bowel areunremarkable. Normal appendix. Mesentery/Peritoneum/Retroperitoneum: No free intraperitoneal air. No free fluid in the abdomen or pelvis. Bladder: The bladder is partially distended. Reproductive Organs: The uterus is normal. Bones: Bone windows demonstrate no suspicious lytic or blastic lesions. The visible osseous structures are intact. Soft tissues: Normal. Impression: 1.No acute process identified in the abdomen or pelvis. 2.Kidney measurements provided for potential kidney donor. > Dictated by Felice Whyte DO (vice president medical affairs). > Dictated by Felice Whyte MD ([employer]ill Layer) 02/05/2023 8:09 AM IGeo MD have personally reviewed and interpreted this examination/study. > Interpreting Provider: Geo Hawkins MD on 02/05/2023 11:25 AM Sean Archibald MD CT ORDERABLES * CREATININE - POCT INTERFACED (02/05/2023 7:12 AM CDT) Creatinine POCT 0.67 0.30 - 1.30 mg/dL 02/05/2023 7:15 AM CDT [facility] eGFR >90 >90 mL/min/1.7 3 m2 02/05/2023 7:15 AM CDT [facility] Blood BLOOD SPECIMEN / Unknown 02/05/2023 7:12 AM CDT 02/05/2023 7:15 AM CDT Sean Archibald MD LAB - POINT OF CARE ORDERABLES [facility] [address] [place] [address] [phone] * CYSTATIN C REFLEX (02/05/2023 7:03 AM CDT) eGFR by Cystatin C 84 >=60 mL/min/BSA 02/06/2023 5:23 PM CDT [employer] ([facility]) Comment: INTERPRETIVE INFORMATION: eGFR by Cystatin C eGFR by Cystatin C was calculated using the CKD-EPI equation. Stage Description eGFR Range 1.......Normal or increased eGFR.......90 or Greater 2.......Mildly decreased eGFR..........60-89 3.......Moderately decreased eGFR......30-59 4.......Severely decreased eGFR........15-29 5.......Kidney Failure.................Less than 15 Performed by [employer], [address] [place] [address] [email or web address], Martin Mao MD, PHD, Lab. Director Blood BLOOD SPECIMEN / Unknown Lab Venipuncture / Unknown 02/05/2023 7:03 AM CDT 02/05/2023 8:21 AM CDT Sean Archibald MD LAB - CHEMISTRY ORDERABLES Performing Organization Address City/State/[facility] Co de Phone Number [employer] [facility]) [address] [place] [address] * CYSTATIN C WITH REFLEX TO EGFR (02/05/2023 7:03 AM CDT) Cystatin C 0.9 0.5 - 1.2 mg/L 02/06/2023 5:23 PM CDT [employer] ([facility]) Comment: Performed By: [employer] [address] [place] [address] Credit Control Clerk: Martin Mao MD, PhD Blood BLOOD SPECIMEN / Unknown Lab Venipuncture / Unknown 02/05/2023 7:03 AM CDT 02/05/2023 8:21 AM CDT Sean Archibald MD LAB - CHEMISTRY ORDERABLES [facility] ([facility]) [address] [place] [address], [facility] * PTT [facility] (02/05/2023 7:03 AM CDT) APTT 23.7 23.0 - 38.4 Seconds 02/05/2023 8:49 AM CDT [facility] Comment:Suggested therapeuti c range for full dose I.V. unfractionated heparin therapy for venous thromboembolism is 71 to 109 seconds. Blood BLOOD SPECIMEN / Unknown Lab Venipuncture / Unknown 02/05/2023 7:03 AM CDT 02/05/2023 8:26 AM CDT Sean Archibald MD LAB - COAGULATI ON ORDERABLES Performing Organization Address [facility] Co de Phone Number [address] [address], [facility] [phone] * PT-INR [facility] (02/05/2023 7:03 AM CDT) PT 13.5 12.1 - 14.8 Seconds 02/05/2023 8:49 AM CDT [facility] INR 1.0 See Comment 02/05/2023 8:49 AM CDT [facility] Comment:The suggested therap eutic range for standard coumadin (warfarin) therapy is an INR of 2.0-3.0. For high-risk patients (Mechanical Mitral Valve Prosthesis, etc.), the suggested prophylactic therapeutic range is an INR of 2.5-3.5. Blood BLOOD SPECIMEN / Unknown Lab Venipuncture / Unknown 02/05/2023 7:03 AM CDT 02/05/2023 8:26 AM CDT Sean Archibald MD LAB - COAGULATI ON ORDERABLES Performing Organization Address City/[facility]/ZIP Co de Phone Number [address] [address] [phone] * (ABNORMAL) ALEKSEY-VARGAS VIRUS AB VIRAL CAPSID IGG/IGM (02/05/2023 7:03 AM CDT) Pathologist [facility] Aleksey-Vargas Viral Capsid Antigen Antibody IgG >600.0(H) 0.0 - 17.9 U/mL 02/08/2023 3:08 PM CDT [facility] ([facility]) Comment: Negative <18.0 Equivocal 18.0 - 21.9 Positive >21.9 Aleksey-Vargas Viral Capsid Antigen Antibody IgM <36.0 0.0 - 35.9 U/mL 02/08/2023 3:08 PM CDT [facility] ([facility]) Comment: Negative <36.0 Equivocal 36.0 - 43.9 Positive >43.9 Blood BLOOD SPECIMEN / Unknown Lab Venipuncture / Unknown 02/05/2023 7:03 AM CDT 02/05/2023 8:22 AM CDT Narrative [facility] ([facility]) - 02/08/2023 3:08 PM CDT Performed at: 01 - [facility] [address] [place], [place] [id number] [employer] Utility Worker: Robert Melendez PhD, Phone: [phone] Sean Archibald MD LAB - SEROLOGY ORDERABLES [facility]) [address] [place] [address] * HIV/HCV/HBV [facility]LOS DONOR (02/05/2023 7:03 AM CDT) Pathologist [facility] Donor HIV-1/HCV/HBV Comment Non Reactive 02/06/2023 7:07 PM CDT [facility] ([facility]) Comment: Non-Reactive for HIV-1 and HIV-2 RNA Non-Reactive for HCV RNA Non-Reactive for HBV DNA Test performed with Jimena MPX kit. Blood BLOOD SPECIMEN / Unknown Lab Venipuncture / Unknown 02/05/2023 7:03 AM CDT 02/05/2023 8:22 AM CDT Narrative [facility] ([facility]) - 02/06/2023 7:07 PM CDT Performed at: [facility] [employer] [address] [place] [id number] [employer] Utility Worker: Wander Jean [facility], Phone: [phone] Sean Archibald MD LAB - CHEMISTRY ORDERABLES Performing Organization Address [facility] Co de Phone Number [facility] ([facility]) [address] [place] [address] * HIV 1/0/2 RFLX TO WB DONOR (02/05/2023 7:03 AM CDT) Pathologist [facility] HIV-1/HIV-2 Ab + p24 Ag Negative Negative 02/06/2023 7:07 PM CDT [facility] ([facility]) Comment: Test performed with [employer] [place] s HIV Ag/Ab kit. The HIV Ag/Ab Combo Kit can detect: HIV-1 (groups M and O)/HIV-2 Ab, HIV-1 p24 Ag Blood BLOOD SPECIMEN / Unknown Lab Venipuncture / Unknown 02/05/2023 7:03 AM CDT 02/05/2023 8:22 AM CDT [facility]) - 02/06/2023 7:07 PM CDT Performed at: - [employer] [address] [place] [id number] [employer] Utility Worker: Wander Jean [facility], Phone: [phone] Sean Archibald MD LAB - CHEMISTRY ORDERABLES Performing Organization Address City/[facility] Co de Phone Number [facility] ([facility]) [address] [place] [address] * HEPATITIS C AB SCREEN RFLX NAAT QUANT (02/05/2023 7:03 AM CDT) Pathologist [facility] Hepatitis C Antibody Non-react ankit Non-reac tive 02/05/2023 9:06 AM CDT [facility] Comment:Hepatitis C Antibody screen indicates no [...] LAB - CHEMISTRY ORDERABLES Performing Organization Address [facility] Co de Phone Number [address] [address], [facility] [phone] * SYPHILIS ANTIBODY CASCADING REFLEX (02/05/2023 7:03 AM CDT) Treponema pallidum Antibody Non-react ankit Non-react ankit 02/05/2023 9:06 AM CDT [facility] Comment: No Laboratory evidence of syphilis infection. Note: Circulating antibodies may be low or undetectable in early infection. If recent exposure is suspected, re-draw sample in 2-4 weeks and repeat testing. Blood BLOOD SPECIMEN / Unknown Lab Venipuncture / Unknown 02/05/2023 7:03 AM CDT 02/05/2023 8:21 AM CDT Sean Archibald MD LAB - SEROLOGY ORDERABLES Performing Organization Address [facility] Co de Phone Number [address] [address], [facility] [phone] * TRYPANOSOMA ANTIBODY IGG (02/05/2023 7:03 AM CDT) Pathologist [facility] Trypan. cruzi IgG 0.4 <=1.0 IV 023 9:06 PM CDT [facility] ([facility]) Comment: INTERPRETIVE INFORMATION: Trypanosoma cruzi Ab, IgG 1.0 IV or less......Negative - No significant level of Trypanosoma cruzi IgG antibody detected. 1.1 IV..............Equivocal - Questionable presence of Trypanosoma cruzi IgG antibody detected. Repeat testing in 10-14 days may be helpful. 1.2 IV or greater...Positive - IgG antibodies to Trypanosoma cruzi detected, which may suggest current or past infection. This assay should not be used for blood donor screening or associated re-entry protocols, or for screening Human Cell and Cellular Tissue-Based Products (HCT/Ps). According to the CDC, at least two different serologic tests should be used to make the laboratory diagnosis of chronic Chagas Disease, as no single serologic test is sufficiently sensitive and specific. Performed By: [facility] [address] [place] [address] Credit Control Clerk: Martin Mao MD, PhD Blood BLOOD SPECIMEN / Unknown Lab Venipuncture / Unknown 02/05/2023 7:03 AM CDT 02/05/2023 8:22 AM CDT Sean Archibald MD LAB - SEROLOGY ORDERABLES [facility] ([facility]) [address] [place] [address], [facility] * (ABNORMAL) URINALYSIS W/MICROSCOPIC NO CULTURE (02/05/2023 7:03 AM CDT) Color UA Yellow Straw, Yellow 02/05/2023 9:30 AM T [facility] Clarity UA Slt Cloudy(A) Clear 02/05/2023 9:30 AM [facility] Specific Mckenzie UA 1.051(H) 1.005 - 1.030 02/05/2023 9:30 AM [facility] pH UA 6.0 5.0 - 8.0 pH 02/05/2023 9:30 AM [facility] Protein UA Negative Negative 02/05/2023 9:30 AM [facility] Glucose UA Negative Negative 02/05/2023 9:30 AM T [facility] Ketone UA Negative Negative 02/05/2023 9:30 AM [facility] Bilirubin UA Negative Negative 02/05/2023 9:30 AM [facility] Blood UA 1+(A) Negative 02/05/2023 9:30 AM [facility] Nitrite UA Negative Negative 02/05/2023 9:30 AM [facility] Leukocyte Esterase Negative Negative 02/05/2023 9:30 AM [facility] Urobilinogen UA Negative Negative mg/dL 02/05/2023 9:30 AM CDT [facility] RBC UA 0-2 None Seen, 0-2, 3-5 /HPF 02/05/2023 9:30 AM CDT [facility] WBC UA 0-5 None Seen, 0-5 /HPF 02/05/2023 9:30 AM CDT [facility] Squamous Epithelial Cells UA 6-10(A) None Seen, 0-2, 3-5 /HPF 02/05/2023 9:30 AM CDT [facility] Urine URINE SPECIMEN OBTAINED BY CLEAN CATCH PROCEDURE / Unknown Collection / Unknown 02/05/2023 7:03 AM CDT 02/05/2023 8:24 AM CDT Narrative [facility] - 02/05/2023 9:30 AM CDT Sean Archibald MD LAB - URINALYSI S ORDERABLES Performing Organization Address [facility] Co de Phone Number [address] [phone] [phone] * QUANTIFERON-TB GOLD PLUS 4-TUBE (02/05/2023 7:03 AM CDT) QuantiFERON NIL 0.15 IU/mL 8:11 AM CDT [employer] ([facility]) Comment: Performed By: [employer] [address] [place] [id number] Credit Control Clerk: Martin Mao MD, PhD QuantiFERON TB Gold Plus Negative Negative 02/08/2023 8:11 AM CDT [employer] ([facility]) Comment: Interpretive Data: Quantiferon TB Gold Plus Interferon gamma release is measured for specimens from each of the four collection tubes. A qualitative result (Negative, Positive, or Indeterminate) is based on interpretation of the four values, NIL, MITOGEN minus NIL (MITOGEN-NIL), TB1 minus NIL (TB1-NIL), and TB2 minus NIL (TB2-NIL). The NIL value represents nonspecific reactivity produced by the patient specimen. The MITOGEN-NIL value serves as the positive control for the patient specimen, demonstrating successful lymphocyte activity. The TB1-NIL tube specifically detects CD4+ lymphocyte reactivity, specifically stimulated by the TB1 antigens. The TB2-NIL tube detects both CD4+ and CD8+ lymphocyte reactivity, stimulated by TB2 antigens. An overall Negative result does not completely rule out TB infection. A false-positive result in the absence of other clinical evidence of TB infection is not uncommon. Refer to: Updated Guidelines for Using Interferon Gamma Release Assays to Detect Mycobacterium tuberculosis Infection --- [place], 2010 (http://www.cdc.gov/mmwr/preview/mmwrhtml/ys8969i4.htm), for more information concerning test performance in low-prevalence populations and use in occupational screening. QuantiFERON Plus TB1 Minus NIL 0.00 0.00 - 0.34 IU/mL 02/08/2023 8:11 AM CDT [facility] ([facility]) QuantiFERON Plus TB2 Minus NIL 0.00 0.00 - 0.34 IU/mL 02/08/2023 8:11 AM CDT [facility]) QuantiFERON Mitogen Minus NIL >10.00 IU/mL 02/08/2023 8:11 AM CDT [facility] ([facility]) Blood BLOOD SPECIMEN / Unknown Lab Venipuncture / Unknown 02/05/2023 7:03 AM CDT 02/05/2023 8:21 AM CDT Sean Archibald MD LAB - CHEMISTRY ORDERABLES [facility]) [address] * URIC ACID BLOOD (02/05/2023 7:03 AM CDT) [facility] Uric Acid 5.6 2.6 - 6.0 mg/dL 02/05/2023 8:57 AM CDT [facility] Blood BLOOD SPECIMEN / Unknown Lab Venipuncture / Unknown 02/05/2023 7:03 AM CDT 02/05/2023 8:26 AM CDT Sean Archibald MD LAB - CHEMISTRY ORDERABLES [facility] [address] [place] [address], [facility] [phone] * WEST NILE VIRUS ANTIBODY IGG/IGM PANEL (02/05/2023 7:03 AM CDT) [facility] West Nile IgG Ab 0.35 <=1.29 IV 02/09/20 12:08 AM [facility] ([facility]) Comment: INTERPRETIVE INFORMATION: West Nile Virus Ab, IgG by IAN, Serum 1.29 IV or less ........ Negative - No significant level of West Nile virus IgG antibody detected. 1.30 - 1.49 IV ......... Equivocal - Questionable presence of West Nile virus IgG antibody detected. Repeat testing in 10-14 days may be helpful. 1.50 IV or greater ..... Positive - Presence of IgG antibody to West Nile virus detected, suggestive of current or past infection. This test is intended to be used as a semi-quantitative means of detecting West Nile virus-specific IgG in serum samples in which there is a clinical suspicion of West Nile virus infection. This test should not be used solely for quantitative purposes, nor should the results be used without correlation to clinical history or other data. Because other members of the Flaviviridae family, such as St.Johnny encephalitis virus, show extensive cross-reactivity with West Nile virus, serologic testing specific for these species should be considered. Seroconversion between acute and convalescent sera is considered strong evidence of current or recent infection. The best evidence for infection is a significant change on two appropriately timed specimens, where both tests are done in the same laboratory at the same time. West Nile IgM Ab 0.01 <=0.89 IV 02/09/20 12:08 AM [facility] [employer] ([facility]) Comment: INTERPRETIVE INFORMATION: West Nile Virus Ab, IgM by IAN, Serum 0.89 IV or less ...... Negative - No significant level of West Nile virus IgM antibody detected. 0.90-1.10 IV ......... Equivocal - Questionable presence of West Nile virus IgM antibody detected. Repeat testing in 10-14 days may be helpful. 1.11 IV or greater ... Positive - Presence of IgM antibody to West Nile virus detected, suggestive of current or recent infection. This test is intended to be used as a semi-quantitative means of detecting West Nile virus-specific IgM in serum samples in which there is a clinical suspicion of West Nile virus infection. This test should not be used solely for quantitative purposes, nor should the results be used without correlation to clinical history or other data. Because other members of the Flaviviridae family, such as St.Johnny encephalitis virus, show extensive cross-reactivity with West Nile virus, serologic testing specific for these species should be considered. Seroconversion between acute and convalescent sera is considered strong evidence of current or recent infection. The best evidence for infection is a significant change on two appropriately timed specimens, where both tests are done in the same laboratory at the same time. Performed By: [employer] [address] [place] [address] Credit Control Clerk: Martin Mao MD, PhD Blood BLOOD SPECIMEN / Unknown Lab Venipuncture / Unknown 02/05/2023 7:03 AM CDT 02/05/2023 8:22 AM CDT Sean Archibald MD LAB - CHEMISTRY ORDERABLES [facility]) [address] [place] [address], [facility] * STRONGYLOIDES ANTIBODY IGG (02/05/2023 7:03 AM CDT) [facility] Strongyloides Antibody IgG 0.1 <=0.9 IV 02/07/2023 8:54 PM CDT [facility] ([facility]) Comment: INTERPRETIVE INFORMATION: Strongyloides Ab, IgG by IAN 0.9 IV or less....... Negative - No significant level of Strongyloides IgG antibody detected. 1.0 IV................Equivocal - The Strongyloides IgG antibody result is borderline and therefore inconclusive. Recommend retesting the patient in 2-4 weeks, if clinically indicated. 1.1 IV or greater ... Positive - IgG antibodies to Strongyloides detected, which may suggest current or past infection. False-positive results may occur with prior exposure to other helminth infections. Testing low-prevalence populations may also result in false-positive results. Performed By: [employer] [address] [place] [address] Credit Control Clerk: Martin Mao MD, PhD Blood BLOOD SPECIMEN / Unknown Lab Venipuncture / Unknown 02/05/2023 7:03 AM CDT 02/05/2023 8:21 AM CDT Sean Archibald MD LAB - SEROLOGY ORDERABLES [address] * MICROALB/CREAT RATIO URINE RANDOM PANEL (02/05/2023 7:03 AM CDT) Albumin Random Urine 9.9 Not Established ug/mL 02/05/2023 8:53 AM CDT [facility] Creatinine Urine 78 Not Established mg/dL 02/05/2023 8:53 AM CDT [facility] Urine Albumin/Creati nine Ratio 13 <30 mg/g 02/05/2023 8:53 AM CDT [facility] Urine URINE SPECIMEN OBTAINED BY CLEAN CATCH PROCEDURE / Unknown Collection / Unknown 02/05/2023 7:03 AM CDT 02/05/2023 8:24 AM CDT Sean Archibald MD LAB - URINE SINDHU HUNTER ORDERABLES [facility] [address] [place] [address], [facility] [phone] * CYTOMEGALOVIRUS ANTIBODY IGM BLOOD (02/05/2023 7:03 AM CDT) Cytomegalovirus Antibody IgM <30.0 0.0 - 29.9 AU/mL 02/06/2023 10:09 AM CDT [facility] ([facility]) Comment: Negative <30.0 Equivocal 30.0 - 34.9 Positive >34.9 A positive result is generally indicative of acute infection, reactivation or persistent IgM production. Blood BLOOD SPECIMEN / Unknown Lab Venipuncture / Unknown 02/05/2023 7:03 AM CDT 02/05/2023 8:21 AM CDT Narrative [facility] ([facility]) - 02/06/2023 10:09 AM CDT Performed at: [address] [place] [address] [address] [place], [place] [id number] [employer] Utility Worker: Robert Melendez PhD, Phone: [phone] Sean Archibald MD LAB - CHEMISTRY ORDERABLES [facility] ([facility]) [address] [place] [address], [facility] * (ABNORMAL) CYTOMEGALOVIRUS ANTIBODY IGG BLOOD (02/05/2023 7:03 AM CDT) [facility] Cytomegalovirus Antibody IgG 7.20(H) <=0.70 U/mL 02/07/2023 12:14 AM CDT [employer] ([facility]) Comment: INTERPRETIVE INFORMATION: Cytomegalovirus Antibody, IgG 0.59 U/mL or less......... Not Detected 0.6 - 0.69 U/mL........... Indeterminate-Repeat testing in 10-14 days may be helpful. 0.70 U/mL or greater...... Detected In immunocompromised patients, CMV serology (IgG or IgM antibody titers) may not be reliable and may be misleading in the diagnosis of acute or reactivation CMV disease. The preferred method for diagnosis is culture of virus and/or demonstration of viral antigen in peripheral white cells (buffy coat), bronchoalveolar lavage (BAL) cells, or tissue biopsies. This test should not be used for blood donor screening, associated re-entry protocols, or for screening Human Cell, Tissues and Cellular and Tissue-Based Products (HCT/P). The best evidence for current infection is a significant change on two appropriately timed specimens, where both tests are done in the same laboratory at the same time. Performed By: [employer] [address] [place] [id number] Credit Control Clerk: Martin Mao MD, PhD Blood BLOOD SPECIMEN / Unknown Lab Venipuncture / Unknown 02/05/2023 7:03 AM CDT 02/05/2023 8:21 AM CDT Sean Archibald MD LAB - CHEMISTRY ORDERABLES [facility] ([facility]) [address] [place] [address], [facility] * HEMOGLOBIN A1C (02/05/2023 7:03 AM CDT) Only the most recent of4 resultswithin the time period is included. Hemoglobin A1c 5.2 <=5.6 % 02/05/2023 1:31 PM CDT [facility] Estimated Average Glucose 103 mg/dL 02/05/2023 1:31 PM CDT [facility] Comment: HbA1c Interpretation: Normal : < 5.7% Pre-diabetes: 5.7-6.4% Diabetes: Equal to or greater than 6.5% Test results diagnostic of diabetes should be repeated for confirmation. Treatment target values recommended by ADA and other clinical organizations should be used to evaluate metabolic control in patients. Reference: [place] [employer], Standards of Care in Diabetes -2020 In patients 70 years and older consider HbA1c target range of 7.0-7.5% (Reference: Damian Carballo et al. JAMDA. 2012) The Sebia assay for the measurement of HbA1c is a National Glycohemoglobin Standardization Program (NGSP) certified method. Blood BLOOD SPECIMEN / Unknown Lab Venipuncture / Unknown 02/05/2023 7:03 AM CDT 02/05/2023 8:26 AM CDT Sean Archibald MD LAB - CHEMISTRY ORDERABLES [facility] [address] [place] [address], [facility] [phone] * CULTURE URINE (02/05/2023 7:03 AM CDT) Culture Urine 10,000-50,000 CFU/mL urogenital jerman MARQUITA 02/06/2023 2:25 PM CDT [facility] Urine URINE SPECIMEN OBTAINED BY CLEAN CATCH PROCEDURE / Unknown Collection / Unknown 02/05/2023 7:03 AM CDT 02/05/2023 9:31 AM CDT Sean Archibald MD LAB - MICROBIOL OGY ORDERABLES [facility] [address] [place] [address], [facility] [phone] * TYPE + SCREEN PANEL (02/05/2023 7:03 AM CDT) Antibody Screen NEG 9:12 AM CDT [facility] ABO Rh O NEG 02/05/2023 9:12 AM CDT [facility] Blood Bank BLOOD SPECIMEN / Unknown Lab Venipuncture / Unknown 02/05/2023 7:03 AM CDT 02/05/2023 8:25 AM CDT Sean Archibald MD LAB - BLOOD BAN K ORDERABLES Performing Organization Address City/[facility]/ZIP Co de Phone Number [facility] [address] [place] [address], [facility] [phone] * NICOTINE + METABOLITES BLOOD (02/05/2023 7:03 AM CDT) Nicotine <5 ng/mL 02/09/2023 12:09 AM CDT [facility] ([facility]) Comment: Consistent with abstinence from nicotine-containing products for at least 1 week. INTERPRETIVE INFORMATION: Nicotine and Metabolites, Serum or Plasma, Quantitative Methodology: Quantitative Liquid Chromatography-Tandem Mass Spectrometry Positive cutoff: 5 ng/mL For medical purposes only; not valid for forensic use. This test is designed to evaluate recent use of nicotine-containing products. Passive and active exposure cannot be discriminated definitively, although a cutoff of 10 ng/mL cotinine is frequently used for surgery qualification purposes. For smoking cessation programs or compliance testing, the absence of expected drug(s) and/or drug metabolite(s) may indicate non-compliance, inappropriate timing of specimen collection relative to drug administration, poor drug absorption, or limitations of testing. This test cannot distinguish between use of tobacco and purified nicotine products. The concentration value must be greater than or equal to the cutoff to be reported as positive. This test was developed and its performance characteristics determined by [employer]. It has not been cleared or approved by the US Food and Drug Administration. This test was performed in a CLIA certified laboratory and is intended for clinical purposes. Performed By: [facility] [employer] [address] [place] [address] Credit Control Clerk: Martin Mao MD, PhD Cotinine <5 ng/mL 02/09/2023 12:09 AM T [facility]) Blood BLOOD SPECIMEN / Unknown Lab Venipuncture / Unknown 02/05/2023 7:03 AM CDT 02/05/2023 8:22 AM CDT Sean Archibald MD LAB - CHEMISTRY ORDERABLES [facility]) [address] [place] [phone], [facility] * (ABNORMAL) COMPREHENSIVE METABOLIC PANEL (02/05/2023 7:03 AM CDT) BUN 11 7 - 26 mg/dL 02/05/2023 8:57 AM [facility] Creatinine 0.67 0.56 - 0.96 mg/dL 02/05/2023 8:57 AM [facility] Sodium 140 136 - 145 mmol/L 02/05/2023 8:57 AM [facility] Potassium 3.7 3.5 - 4.5 mmol/L 02/05/2023 8:57 AM [facility] Chloride 108(H) 98 - 107 mmol/L 02/05/2023 8:57 AM [facility] CO2 21(L) 22 - 29 mmol/L 02/05/2023 8:57 AM [facility] Glucose 88 70 - 115 mg/dL 02/05/2023 8:57 AM [facility] Calcium 9.4 8.4 - 10.2 mg/dL 02/05/2023 8:57 AM [facility] Protein Total 6.5 6.0 - 8.3 g/dL 02/05/2023 8:57 AM [facility] Albumin 3.8 3.4 - 5.0 g/dL 02/05/2023 8:57 AM [facility] Bilirubin Total 0.7 0.2 - 1.2 mg/dL 02/05/2023 8:57 AM [facility] Alkaline Phosphatase 62 40 - 150 U/L 02/05/2023 8:57 AM [facility] ALT 30 5 - 55 U/L 02/05/2023 8:57 AM [facility] AST 22 5 - 34 U/L 02/05/2023 8:57 AM [facility] Anion Gap 15 8 - 18 02/05/2023 8:57 AM [facility] BUN/Creatinine Ratio 16 7 - 23 02/05/2023 8:57 AM [facility] Osmolality Calculated 289 270 - 300 mOsm/kg 02/05/2023 8:57 AM [facility] Albumin/Globulin Ratio 1.4 1.1 - 2.3 02/05/2023 8:57 AM [facility] eGFR by CKD-EPI >90 >=90 mL/min/1.7 3 m2 02/05/2023 8:57 AM [facility] Blood BLOOD SPECIMEN / Unknown Lab Venipuncture / Unknown 02/05/2023 7:03 AM T 02/05/2023 8:26 AM [facility] Sean Archibald MD LAB - CHEMISTRY ORDERABLES Performing Organization Address City/State/[facility] Co de Phone Number [facility] [address] [place] [address], [facility] [phone] * URINE DRUG SCREEN IMMUNOASSAY (02/05/2023 7:03 AM [facility]) [facility] Amphetamines Screen Urine Negative Negative: < 1000 ng/mL 02/05/2023 8:53 AM [facility] Barbiturates Screen Urine Negative Negative: < 200 ng/mL 02/05/2023 8:53 AM [facility] Benzodiazepine Screen Urine Negative Negative: < 200 ng/mL 02/05/2023 8:53 AM [facility] Opiates Urine Negative Negative: < 300 ng/mL 02/05/2023 8:53 AM [facility] Cocaine Metabolites Urine Negative Negative: < 300 ng/mL 02/05/2023 8:53 AM [facility] Phencyclidine Screen Urine Negative Negative: < 25 ng/ml 02/05/2023 8:53 AM CDT [facility] Cannabinoids Screen Urine Negative Negative: <50 ng/mL 02/05/2023 8:53 AM CDT [facility] Methadone Screen Urine Negative Negative: < 300 ng/mL 02/05/2023 8:53 AM CDT [facility] Fentanyl Screen Urine Negative Negative: <1.5 ng/mL 02/05/2023 8:53 AM CDT [facility] Urine URINE / Unknown Collection / Unknown 02/05/2023 7:03 AM CDT 02/05/2023 8:24 AM CDT Narrative [facility] - 02/05/2023 8:53 AM CDT The Urine Toxicology Screening Panel does not screen for Propoxyphene, Meprobamate, Carisoprodol, Trazodone, nbci-yve-pkyzpec medications and/or volatiles (Acetone, Isopropanol, Methanol or Ethylene Glycol). Ethanol, Salicylate, Acetaminophen, Tricyclic Antidepressants and several therapeutic drugs may be individually assayed in serum or plasma specimen. Toxicology testing by the [facility] is an aid to medical diagnosis and treatment of patients. No documented chain of custody was maintained. Results are intended to be used for clinical purposes only. Sean Archibald MD LAB - URINE SINDHU HUNTER ORDERABLES Performing Organization Address City/[facility]/ZIP Co de Phone Number [address] [address], [facility] [phone] * PHOSPHORUS BLOOD (02/05/2023 7:03 AM CDT) Phosphorus 3.7 2.9 - 5.1 mg/dL 02/05/2023 8:57 AM CDT [facility] Blood BLOOD SPECIMEN / Unknown Lab Venipuncture / Unknown 02/05/2023 7:03 AM CDT 02/05/2023 8:26 AM CDT Sean Archibald MD LAB - CHEMISTRY ORDERABLES [address] [address], [facility] [phone] * HEPATITIS B SURFACE ANTIBODY (02/05/2023 7:03 AM CDT) [facility] Hepatitis B Virus Surface Antibody Non-react ankit Non-react ankit 02/05/2023 9:06 AM CDT [facility] Comment: < 8 mIU/mL Hepatitis B surface Antibody (HBsAb). Nonreactive for HBsAb - individual is considered not immune to Hepatitis B Virus infection. Hepatitis B Surface Antibody Quantitative 0.0 <8.0 mIU/mL 02/05/2023 9:06 AM CDT [facility] Comment: Hepatitis B Surface Antibody Numeric Result Interpretation: Nonreactive: <8.0 mIU/mL Indeterminate: 8.0 - 12.0 mIU/mL Reactive: >12.0 mIU/mL Blood BLOOD SPECIMEN / Unknown Lab Venipuncture / Unknown 02/05/2023 7:03 AM CDT 02/05/2023 8:21 AM CDT Sean Archibald MD LAB - CHEMISTRY ORDERABLES [address] [address], [facility] [phone] * HEPATITIS B CORE ANTIBODY TOTAL (02/05/2023 7:03 AM CDT) [facility] HBc Antibody Total Non-reacti ve Non-reacti ve 02/05/2023 9:06 AM CDT [facility] Blood BLOOD SPECIMEN / Unknown Lab Venipuncture / Unknown 02/05/2023 7:03 AM CDT 02/05/2023 8:21 AM CDT Sean Archibald MD LAB - CHEMISTRY ORDERABLES [address] [address], [place] [phone] * HEPATITIS B SURFACE ANTIGEN W RFLX CONFIRMATION (02/05/2023 7:03 AM CDT) Hepatitis B Virus Surface Antigen Non-reacti ve Non-reacti ve 02/05/2023 9:06 AM CDT [facility] Blood BLOOD SPECIMEN / Unknown Lab Venipuncture / Unknown 02/05/2023 7:03 AM CDT 02/05/2023 8:21 AM CDT Sean Archibald MD LAB - CHEMISTRY ORDERABLES [address] [address], [facility] [phone] * CREATININE BLOOD (02/05/2023 7:03 AM CDT) [facility] Creatinine 0.67 0.56 - 0.96 mg/dL 02/05/2023 8:57 AM CDT [facility] eGFR by CKD-EPI >90 >=90 mL/min/1.7 3 m2 02/05/2023 8:57 AM CDT [facility] Blood BLOOD SPECIMEN / Unknown Lab Venipuncture / Unknown 02/05/2023 7:03 AM CDT 02/05/2023 8:26 AM CDT Sean Archibald MD LAB - CHEMISTRY ORDERABLES [address] [address], [facility] [phone] * ALCOHOL ETHYL BLOOD (02/05/2023 7:03 AM CDT) Pathologist [facility] Ethanol (mg/dL) <10 <=10 mg/dL 8:57 AM CDT [facility] Ethanol Calculated (g/dL) <0.010 <0.010 g/dL 02/05/2023 8:57 AM CDT [facility] Blood BLOOD SPECIMEN / Unknown Lab Venipuncture / Unknown 02/05/2023 7:03 AM CDT 02/05/2023 8:26 AM CDT Narrative [facility] - 02/05/2023 8:57 AM CDT Ethanol Interp <10: None Detected. Depression of INJECTION MOLDING MACHINE OFFBEARER: >100 mg/dl Potentially Critical: >250 mg/dl Potentially Fatal >400 mg/dl Ethanol in the patient's blood will contribute to the osmolar gap. Ethanol's contribution to the osmolar gap can be estimated by dividing the concentration of ethanol in mg/dL by 4.6. This test is for clinical use only and does not equal a TANVI for legal purposes. Sean Archibald MD LAB - CHEMISTRY ORDERABLES [facility] [address] [place] [address], [facility] [phone] * (ABNORMAL) LIPID PROFILE (02/05/2023 7:03 AM CDT) Only the most recent of4 resultswithin the time period is included. Cholesterol Total 230(H) <200 mg/dL 02/05/2023 8:57 AM [facility] HDL 56 >40 mg/dL 02/05/2023 8:57 AM T [facility] Comment: ATP III Classification of HDL Cholesterol: <40 mg/dL: Considered a major risk factor. >60 mg/dL: Considered a negative risk factor. LDL Calculated 143(H) <100 mg/dL 02/05/2023 8:57 AM [facility] Comment: ATP III Classification of LDL Cholesterol: <100 mg/dL: Optimal 100 - 129 mg/dL: Near Optimal/Above Optimal 130 - 159 mg/dL: Borderline High 160 - 189 mg/dL: High >190 mg/dL: Very High Triglycerides 157(H) <150 mg/dL 02/05/2023 8:57 AM [facility] Comment: ATP III Classification of Triglycerides: <150 mg/dL: Normal 150 - 199 mg/dL: Borderline High 200 - 400 mg/dL: High >500 mg/dL: Very High Blood BLOOD SPECIMEN / Unknown Lab Venipuncture / Unknown 02/05/2023 7:03 AM CDT 02/05/2023 8:26 AM CDT Sean Archibald MD LAB - CHEMISTRY ORDERABLES [facility] [address] [facility] [place] [address], [facility] [phone] * SARS-COV-2 (COVID-19) IN HOUSE (06/12/2020 1:13 PM CDT) COVID-19 PCR Not detected Not detected, Invalid 06/14/2020 12:26 AM CDT [facility] Microbiology SPECIMEN FROM NASOPHARYNGEAL STRUCTURE / Unknown Collection / Unknown 06/12/2020 1:13 PM CDT 06/12/2020 1:14 PM CDT Narrative [facility] - 06/14/2020 12:26 AM CDT This nucleic acid amplification assay performance was validated by [facility]. This test has been authorized by the Food and Drug administration (FDA)under an Emergency Use Authorization (EUA). This test has been validated in accordance with the FDA's guidance document Policy for Diagnostic Testing in Laboratories Certified to perform High Complexity Testing under CLIA prior to Emergency Use Authorization for Coronavirus Disease-2019 during the Public Health Emergency issued on November 18, 2019. FDA independent review of this validation is pending. This test is only authorized for the duration of time the declaration that circumstances exist justifying the authorization of emergency use of in vitro diagnostic tests for detection of SARS-CoV-2 virus and/or diagnosis of COVID-19 infection under section 564(b)(1) of the Act, 21 U.S.C 360bbb-3 (b)(1), unless the authorization is terminated or revoked sooner. Jani Soria MD LAB - MICROBIO LOGY ORDERABLES [facility] [address] [place] [address], [facility] [phone] * MAMMO BILAT SCREENING (05/29/2020 9:25 AM CDT) Only the most recent of2 resultswithin the time period is included. Anatomical Region Laterality Modality Breast Bilateral Mammography 05/30/2020 10:3 7 AM CDT Impressions 05/30/2020 11:56 AM CDT IMPRESSION: No mammographic evidence of malignancy. ASSESSMENT: BI-RADS Category 1: Negative mammogram. RECOMMENDATION: Bilateral screening mammogram in one year. Report dictated by Wily Guido DO, MPH (vice president medical affairs). I, Dr. EZEQUIEL GAMA M.D. have personally reviewed and interpreted this examination/study. This report was electronically signed by EZEQUIEL GAMA M.D. on 05/30/2020 11:56 AM . Narrative 05/30/2020 11:56 AM CDT BILATERAL SCREENING MAMMOGRAM DATE: 05/29/2020 9:25 AM. COMPARISON: Multiple prior mammograms, most recently 2016 and from [facility] dated 2006. HISTORY: Screening [...] study. Jose J Corcoran MD MAMMO ORDERABLES * GLUCOSE VITALITY (07/13/2019 9:12 AM CDT) Only the most recent of3 resultswithin the time period is included. Glucose 79 70 - 115 mg/dL 07/13/2019 10:37 AM CDT [facility] Blood BLOOD SPECIMEN / Unknown Lab Venipuncture / Unknown 07/13/2019 9:12 AM CDT 07/13/2019 10:03 AM CDT LAB - CHEMISTRY DEAN CARROLL [facility] [address] [phone] * US BREAST BILATERAL LTD (08/06/2017 1:50 PM OFFSET PLATE PREPARATION SUPERVISOR) Anatomical Region Laterality Modality Bilateral Other Impressions 08/06/2017 3:06 PM OFFSET PLATE PREPARATION SUPERVISOR IMPRESSION: No evidence of malignancy in either breast. Both previously described mammographic abnormalities are consistent with superimposed normal tissue. ASSESSMENT: BI-RADS Category 1: Negative mammogram. RECOMMENDATION: Bilateral screening mammogram in one year. Findings and recommendations were discussed with the patient by Dr. Gama. I, Dr. EZEQUIEL GAMA M.D. have personally reviewed and interpreted this examination/study. This report was electronically signed by EZEQUIEL GAMA M.D. on 08/06/2017 3:06 PM . Narrative 08/06/2017 3:06 PM OFFSET PLATE PREPARATION SUPERVISOR EXAMINATION: BILATERAL DIAGNOSTIC MAMMOGRAM AND LIMITED BILATERAL BREAST ULTRASOUND TECHNIQUE: Images were performed using 3D tomosynthesis images with reconstructed/synthetic 2D images and CAD analysis. DATE: 08/06/2017. HISTORY: 52-year-old female who was called back from screening mammogram on 07/14/2017 for possible architectural distortion in the central right breast and an asymmetry in the central left breast. COMPARISON: Prior mammograms from 07/14/2017 and 07/08/2007. BREAST COMPOSITION: There are scattered areas of fibroglandular density. RISK ASSESSMENT CALCULATION: Based on the information provided by your patient, her lifetime risk of breast cancer is average (<15%). Please note this information is only as accurate as the data entered by your patient. FINDINGS: The previously described possible area of architectural distortion in the central right breast on the CC image does not persist on spot compression and rolled images and is consistent with superimposed normal tissue. The previously described asymmetry in the central left breast on the CC images does not persist on spot compression and rolled images and is consistent with superimposed tissue. Targeted ultrasound of the upper inner right breast and upper outer left breast in the regions of the previously described mammographic abnormalities does not demonstrate a suspicious cystic or solid mass. Procedure Note Nehal Gama MD - 12/17/2017 EXAMINATION: BILATERAL DIAGNOSTIC MAMMOGRAM AND LIMITED BILATERAL BREAST ULTRASOUND TECHNIQUE: Images were performed using 3D tomosynthesis images withreconstructed/synthetic 2D images and CAD analysis. DATE: 08/06/2017. HISTORY: 52-year-old female who was called back from screening mammogramon 07/14/2017 for possible architectural distortion in the central rightbreast and an asymmetry in the central left breast. COMPARISON: Prior mammograms from 07/14/2017 and 07/08/2007. BREAST COMPOSITION: There are scattered areas of fibroglandular density. RISK ASSESSMENT CALCULATION: Based on the information provided by yourpatient, her lifetime risk of breast cancer is average (<15%). Please notethis information is only as accurate as the data entered by yourpatient. FINDINGS: The previously described possible area of architectural distortion in thecentral right breast on the CC image does not persist on spot compressionand rolled images and is consistent with superimposed normal tissue. Thepreviously described asymmetry in the central left breast on the CC images does not persist on spotcompression and rolled images and is consistent with superimposedtissue. Targeted ultrasound of the upper inner right breast and upper outer leftbreast in the regions of the previously described mammographicabnormalities does not demonstrate a suspicious cystic or solid mass. IMPRESSION IMPRESSION: No evidence of malignancy in either breast. Both previously describedmammographic abnormalities are consistent with superimposed normaltissue. ASSESSMENT: BI-RADS Category 1: Negative mammogram. RECOMMENDATION: Bilateral screening mammogram in one year. Findings and recommendations were discussed with the patient by . Dr. EZEQUIEL Bates M.D. have personally reviewed and interpreted thisexamination/study. This report was electronically signed by EZEQUIEL GAMA M.D. on08/06/2017 3:06 PM . Génesis Romero MD US ORDERABLES * MAMMO BILAT DIAGNOSTIC (08/06/2017 1:09 PM OFFSET PLATE PREPARATION SUPERVISOR) Anatomical Region Laterality Modality Bilateral Other Impressions 08/06/2017 3:06 PM OFFSET PLATE PREPARATION SUPERVISOR IMPRESSION: No evidence of malignancy in either breast. Both previously described mammographic abnormalities are consistent with superimposed normal tissue. ASSESSMENT: BI-RADS Category 1: Negative mammogram. RECOMMENDATION: Bilateral screening mammogram in one year. Findings and recommendations were discussed with the patient by Dr. Gama. Dr. EZEQUIEL Bates M.D. have personally reviewed and interpreted this examination/study. This report was electronically signed by EZEQUIEL GAMA M.D. on 08/06/2017 3:06 PM . Narrative 08/06/2017 3:06 PM OFFSET PLATE PREPARATION SUPERVISOR EXAMINATION: BILATERAL DIAGNOSTIC MAMMOGRAM AND LIMITED BILATERAL BREAST ULTRASOUND TECHNIQUE: Images were performed using 3D tomosynthesis images with reconstructed/synthetic 2D images and CAD analysis. DATE: 08/06/2017. HISTORY: 52-year-old female who was called back from screening mammogram on 07/14/2017 for possible architectural distortion in the central right breast and an asymmetry in the central left breast. COMPARISON: Prior mammograms from 07/14/2017 and 07/08/2007. BREAST COMPOSITION: There are scattered areas of fibroglandular density. RISK ASSESSMENT CALCULATION: Based on the information provided by your patient, her lifetime risk of breast cancer is average (<15%). Please note this information is only as accurate as the data entered by your patient. FINDINGS: The previously described possible area of architectural distortion in the central right breast on the CC image does not persist on spot compression and rolled images and is consistent with superimposed normal tissue. The previously described asymmetry in the central left breast on the CC images does not persist on spot compression and rolled images and is consistent with superimposed tissue. Targeted ultrasound of the upper inner right breast and upper outer left breast in the regions of the previously described mammographic abnormalities does not demonstrate a suspicious cystic or solid mass. Procedure Note Nehal Gama MD - 12/17/2017 EXAMINATION: BILATERAL DIAGNOSTIC MAMMOGRAM AND LIMITED BILATERAL BREAST ULTRASOUND TECHNIQUE: Images were performed using 3D tomosynthesis images withreconstructed/synthetic 2D images and CAD analysis. DATE: 08/06/2017. HISTORY: 52-year-old female who was called back from screening mammogramon 07/14/2017 for possible architectural distortion in the central rightbreast and an asymmetry in the central left breast. COMPARISON: Prior mammograms from 07/14/2017 and 07/08/2007. BREAST COMPOSITION: There are scattered areas of fibroglandular density. RISK ASSESSMENT CALCULATION: Based on the information provided by yourpatient, her lifetime risk of breast cancer is average (<15%). Please notethis information is only as accurate as the data entered by yourpatient. FINDINGS: The previously described possible area of architectural distortion in thecentral right breast on the CC image does not persist on spot compressionand rolled images and is consistent with superimposed normal tissue. Thepreviously described asymmetry in the central left breast on the CC images does not persist on spotcompression and rolled images and is consistent with superimposedtissue. Targeted ultrasound of the upper inner right breast and upper outer leftbreast in the regions of the previously described mammographicabnormalities does not demonstrate a suspicious cystic or solid mass. IMPRESSION IMPRESSION: No evidence of malignancy in either breast. Both previously describedmammographic abnormalities are consistent with superimposed normaltissue. ASSESSMENT: BI-RADS Category 1: Negative mammogram. RECOMMENDATION: Bilateral screening mammogram in one year. Findings and recommendations were discussed with the patient by . I, Dr. EZEQUIEL GAMA M.D. have personally reviewed and interpreted thisexamination/study. This report was electronically signed by EZEQUIEL GAMA M.D. on08/06/2017 3:06 PM . Génesis Romero MD MAMMO ORDERABLES * VITALITY SCREEN (BEAKER) (07/16/2017 7:50 AM CDT) Blood specimen (specimen) BLOOD SPECIMEN / Unknown 07/16/2017 7:50 AM CDT Narrative [facility] - 07/16/2017 11:52 AM CDT The following orders were created for panel order [facility] Vitality Screening. Procedure Abnormality Status --------- ------ Hemoglobin A1c[[id number]] Final result Fasting Glucose[[id number]] Normal Final result Lipid Panel[[id number]] Abnormal Final result Please view results for these tests on the individual orders. Historical Provider LAB - CHEMISTRY O RDERABLES Performing Organization Address City/State/[facility] Co de Phone Number [facility] [address] [place] [address], [facility] Care Teams Substitute Crossing Guard Relationship Specialty Start Date End Date Trinity Goldstein, LOADER MACHINE-CHIEF CONCIERGE [address] [place] [address] PCP - General Nurse Practitioner 02/05/23
--- OUTSIDE RECORDS SUMMARY | 2024-12-01 08:14 | XMS_ITS | Encounter Summary ---
Author Organization [facility] Address [address] [facility] [place] [address] Care Team Providers Care Retail Salesperson Name Role Phone Rayo Sierra MD Primary Care Provider [phone] Trinity Goldstein APRN-DATA STEWARD Primary Care Provider [phone] Encounter Details Date Type Department Care Team (Late st Contact Info) Description 07/12/2019 Lab Requisition [facility] [address] [place] [id number] Social History Tobacco Use Types Packs/Day Years Used Date Smoking Tobacco: Never Assessed Sex and Gender Information Value Date Recorded Sex Assigned at Not on file Gender Identity Not on file Sexual Orientation Not on file documented as of this encounter Plan of Treatment Not on file documented as of this encounter Procedures Procedure Name Priority Date/Time Associated Diagnosis Comments GLUCOSE VITALITY Routine 07/13/2019 9:12 AM CDT HEMOGLOBIN A1C Routine 07/13/2019 9:12 AM CDT LIPID PROFILE Routine 07/13/2019 9:12 AM CDT documented in this encounter Results * HEMOGLOBIN A1C (07/13/2019 9:12 AM CDT) Hemoglobin A1c 5.0 4.4 - 6.3 % 07/13/2019 2:20 PM CDT [facility] Estimated Average Glucose 97 mg/dL 07/13/2019 2:20 PM CDT [facility] Comment: HbA1c Interpretation: Treatment target values recommended by ADA and other clinical organizations should be used to evaluate metabolic control in patients. Treatment Target Values: Normal : < 5.7% Pre-diabetes: 5.7-6.4% Diabetes: Equal to or greater than 6.5% Reference: [place] [employer] Standards of Care in Diabetes -2014 In patients 70 years and older consider HbA1c target range of 7.0-7.5% Reference: Diabetes Mellitus in Older People: Position Statement on behalf of the International Association of Gerontology and Geriatrics (IAGG), the Diabetes Working Alliance Party for Older People (EDWPOP), and the International Task Force of Experts in Diabetes. Damian Carballo et al. J [place] [employer] Association. 2012 Test results diagnostic of diabetes should be repeated for confirmation. The Sebia Capillary 2 assay for the measurement of HbA1c is a National Glycohemoglobin Standardization Program (NGSP)certified method. Blood BLOOD SPECIMEN / Unknown Lab Venipuncture / Unknown 07/13/2019 9:12 AM CDT 07/13/2019 10:02 AM CDT LAB - CHEMISTRY DEAN CARROLL [address] [phone] * (ABNORMAL) LIPID PROFILE (07/13/2019 9:12 AM CDT) Cholesterol Total 231(H) <200 mg/dL 07/13/2019 10:55 AM [facility] HDL 80 >40 mg/dL 07/13/2019 10:55 AM [facility] Comment: ATP III Classification of HDL Cholesterol: <40 mg/dL: Considered a major risk factor. >60 mg/dL: Considered a negative risk factor. LDL Calculated 119(H) <100 mg/dL 07/13/2019 10:55 AM [facility] Comment: ATP III Classification of LDL Cholesterol: <100 mg/dL: Optimal 100 - 129 mg/dL: Near Optimal/Above Optimal 130 - 159 mg/dL: Borderline High 160 - 189 mg/dL: High >190 mg/dL: Very High Triglycerides 158(H) <150 mg/dL 07/13/2019 10:55 AM [facility] Comment: ATP III Classification of Triglycerides: <150 mg/dL: Normal 150 - 199 mg/dL: Borderline High 200 - 400 mg/dL: High >500 mg/dL: Very High Blood BLOOD SPECIMEN / Unknown Lab Venipuncture / Unknown 07/13/2019 9:12 AM CDT 07/13/2019 10:02 AM CDT LAB - CHEMISTRY DEAN CARROLL [address] [phone] * GLUCOSE VITALITY (07/13/2019 9:12 AM CDT) [facility] Glucose 79 70 - 115 mg/dL 07/13/2019 10:[address] [facility] Blood BLOOD SPECIMEN / Unknown Lab Venipuncture / Unknown 07/13/2019 9:12 AM CDT 07/13/2019 10:03 AM CDT LAB - CHEMISTRY DEAN CARROLL [address] [phone] documented in this encounter Visit Diagnoses Not on filedocumented in this encounter Care Teams Retail Salesperson Relationship Specialty Start Date End Date Rayo Sierra MD [address] [place] [phone] PCP - General Internal Medicine 11/27/22 02/04/23 Trinity Goldstein, PATTERNMAKER HAND-DATA STEWARD [address] [place] [phone] PCP - General Nurse Practitioner 02/05/23 documented as of this encounter
--- OUTSIDE RECORDS SUMMARY | 2024-12-01 08:14 | XMS_ITS | Encounter Summary ---
Author Organization [facility] Address [address] [place] [address] Care Team Providers Care Laundromat Worker Name Role Phone Rayo Sierra MD Primary Care Provider [phone] Trinity Goldstein Primary Care Provider [phone] Encounter Details Date Type Department Care Team (Late st Contact Info) Description 01/12/[address] [facility] [address] [place] [phone] Oli Lombardi, MATILDE Social History Tobacco Use Types Packs/Day Years Used Date Smoking Tobacco: Never Assessed Sex and Gender Information Value Date Recorded Sex Assigned at Not on file Gender Identity Not on file Sexual Orientation Not on file documented as of this encounter Plan of Treatment Not on file documented as of this encounter Visit Diagnoses Not on filedocumented in this encounter Care Teams Laundromat Worker Relationship Specialty Start Date End Date Rayo Sierra MD [address] [place] [phone] PCP - General Internal Medicine 11/27/22 02/04/23 Trinity Goldstein APRN-CNP [address] [place] [phone] PCP - General Nurse Practitioner 02/05/23 documented as of this encounter
== END 2024-12-01 07:58 | disposition home or self-care (01) ==
LOC: ANHIMG 08:02
PROVIDERS: Visit Provider Obstetrics & Gynecology
DX: Z12.31 Encounter for screening mammogram for malignant neoplasm of breast (principal)
CPT/HCPCS: 77063; 77067

== ENCOUNTER 2025-01-10 00:40 | Day surgery (SDC) | payer BC, OTHER, SELFPAY ==
[2024-12-29 10:01] VITALS: BMI 26.9
--- NOTE | 2025-01-09 14:01 | WPDANESEPPF ---
Anes - Initial Pre Proc Eval Procedure: Operation Date: 01/10/25 08:30 Proposed Procedures p Colonoscopy - Kodi Johnson MD Date/Time: 01/09/25 14:01 Surgeon: Kodi Johnson MD Pre Op Diagnosis: Colon Polyps Patient Data Age: 59 Gender: F Height: 1.7 m Weight: 78 kg Allergies Allergy/AdvReac Type Severity Reaction Status Date / Time No Known Allergies Allergy Unknown Verified 01/10/25 07:16 Home Medications ?Medication ?Instructions ?Recorded ?Confirmed ?Type No Home Medications 12/29/24 12/29/24 History Patient hx anesthesia problems: none Family hx anesthesia problems: none Results Review: All pre-operative results and documents have been reviewed as part of the pre-operative evaluation. [facility] Social History Social History (System 12/08/24 @ 10:31 by Hardeep Calhoun) Smoking status: Never smoker Second hand tobacco smoke exposure: No Alcohol intake: current Living arrangements: with family Spiritual care concerns: No Anes - Eval Final PreProcedure Day of Procedure 01/09/25 14:01 Patient weight: overweight Heart: regular rate and rhythm Lungs: clear to auscultation Airway: Mallampati scale class II Neurological: alert and oriented Last oral intake: >/= 8 hours ASA classification: I Emergent: no Anesthetic plan: proceed Anesthesia type and monitoring: general GIVS and standard monitoring Results Review: All pre-operative results and documents have been reviewed as part of the pre-operative evaluation. Informed Consent: The patient's anesthetic plan and its attendant risks and benefits were discussed with the patient/family/POA. Questions were solicited and answers provided to the satisfaction of the patient/family/POA.
--- OUTSIDE RECORDS SUMMARY | 2025-01-10 00:43 | XMS_ITS | Clinical Summary ---
Author Organization [facility] Address [address] [place] [address] Care Team Providers Care Plywood And Veneer Repairer Name Role Phone Trinity Goldstein APRN-TOOL LIAISON Primary Care Provider [phone] Source Comments [facility],non-owned Affiliates and Associated Physician Practices is amultiple site organization consisting of ambulatory clinics and hospital sitesin [place], [place], [place] and [place]. This disclosure is being madepursuant to the Care Everywhere program and may not contain all information available regarding this patient. Last updated 18.[facility] Allergies No known active allergies Medications * Be aware that medications may not be up to date on this document. Alwaysverify current medications with the patient. omeprazole EC (PriLOSEC OTC) 20 MG tabletIndicatio ns:Heartburn Take 1 (one) tablet by mouth as needed for Heartburn Reasons: Heartburn Active Pediatric Multivitamins-I roberto ([facility] Chewable Childrens Vitamin) 18 MG CHEW Active Immunizations Immunization Administration Dates Next Due Covid ViaCLIX primary monoval ent 12+ yr 0.3mL Purple [...] 0.6 oz pur e alcohol) social weekly Comments No Sex and Gender Information Value Date Recorded Sex Assigned at Not on file Legal Sex Female 5:17 PM J2EE ANDROID DEVELOPER Gender Identity Not on file Sexual Orientation [...] 2024 06/04/2022, 09/16/2021, 11/07/2020, Additional history exists DEPRESSION SCREENING 09/20/2024 INFLUENZA VACCINE (Season Ended) 2025 06/27/2021 SCREENING FOR DIABETES 02/05/2026 , 02/05/2023, 07/13/2019, [...] ankit Non-reac tive 02/05/2023 9:06 AM CDT [facility] Comment:Hepatitis C Antibody screen indicates no serologic [...] 7:03 AM CDT 02/05/2023 8:21 AM CDT us Sean Archibald MD LAB - CHEMISTRY ORDERAB LES Final Result [facility] [address] [address], [facility] [phone] * (ABNORMAL) COMPREHENSIVE METABOLIC PANEL (02/05/2023 7:03 AM [facility]) BUN 11 7 - 26 mg/dL 02/05/2023 8:57 AM [facility] Creatinine 0.67 0.56 - 0.96 mg/dL 02/05/2023 8:57 AM [facility] Sodium 140 136 - 145 mmol/L 02/05/2023 8:57 AM [facility] Potassium 3.7 3.5 - 4.5 mmol/L 02/05/2023 8:57 AM [facility] Chloride 108(H) 98 - 107 mmol/L 02/05/2023 8:57 AM [facility] CO2 21(L) 22 - 29 mmol/L 02/05/2023 8:57 AM [facility] Glucose 88 70 - 115 mg/dL 02/05/2023 8:57 AM [facility] Calcium 9.4 8.4 - 10.2 mg/dL 02/05/2023 8:57 AM [facility] Protein Total 6.5 6.0 - 8.3 g/dL 02/05/2023 8:57 AM [facility] Albumin 3.8 3.4 - 5.0 g/dL 02/05/2023 8:57 AM [facility] Bilirubin Total 0.7 0.2 - 1.2 mg/dL 02/05/2023 8:57 AM [facility] Alkaline Phosphatase 62 40 - 150 U/L 02/05/2023 8:57 AM [facility] ALT 30 5 - 55 U/L 02/05/2023 8:57 AM [facility] AST 22 5 - 34 U/L 02/05/2023 8:57 AM [facility] Anion Gap 15 8 - 18 02/05/2023 8:57 AM [facility] BUN/Creatinine Ratio 16 7 - 23 02/05/2023 8:57 AM [facility] Osmolality Calculated 289 270 - 300 mOsm/kg 02/05/2023 8:57 AM [facility] Albumin/Globulin Ratio 1.4 1.1 - 2.3 02/05/2023 8:57 AM [facility] eGFR by CKD-EPI >90 >=90 mL/min/1.7 3 m2 02/05/2023 8:57 AM [facility] Blood BLOOD SPECIMEN / Unknown Lab Venipuncture / Unknown 02/05/2023 7:03 AM CDT 02/05/2023 8:26 AM CDT Sean Archibald MD LAB - CHEMISTRY ORDERAB LES Final Result [facility] [address] [place] [address], [facility] [phone] * (ABNORMAL) LIPID PROFILE (02/05/2023 7:03 AM T) Pathologist [facility] Cholesterol Total 230(H) <200 mg/dL 02/05/2023 8:57 AM [facility] HDL 56 >40 mg/dL 02/05/2023 8:57 AM [facility] Comment: ATP III Classification of HDL Cholesterol: <40 mg/dL: Considered a major risk factor. >60 mg/dL: Considered a negative risk factor. LDL Calculated 143(H) <100 mg/dL 02/05/2023 8:57 AM [facility] Comment: ATP III Classification of LDL Cholesterol: <100 mg/dL: Optimal 100 - 129 mg/dL: Near Optimal/Above Optimal 130 - 159 mg/dL: Borderline High 160 - 189 mg/dL: High >190 mg/dL: Very High Triglycerides 157(H) <150 mg/dL 02/05/2023 8:57 AM [facility] Comment: ATP III Classification of Triglycerides: <150 mg/dL: Normal 150 - 199 mg/dL: Borderline High 200 - 400 mg/dL: High >500 mg/dL: Very High Blood BLOOD SPECIMEN / Unknown Lab Venipuncture / Unknown 02/05/2023 7:03 AM CDT 02/05/2023 8:26 AM CDT Sean Archibald MD LAB - CHEMISTRY ORDERAB LES Final Result [facility] [address] [place] [address], [facility] [phone] * MAMMO BILAT SCREENING (05/29/2020 9:25 AM CDT) Anatomical Region Laterality Modality Breast Bilateral Mammography 05/30/2020 10:3 7 AM CDT Impressions 05/30/2020 11:56 AM CDT IMPRESSION: No mammographic evidence of malignancy. ASSESSMENT: BI-RADS Category 1: Negative mammogram. RECOMMENDATION: Bilateral screening mammogram in one year. Report dictated by Wily Guido DO, MPH (human resources vice president). I, Dr. EZEQUIEL SERRANO M.D. have personally reviewed and interpreted this examination/study. This report was electronically signed by EZEQUIEL SERRANO M.D. on 05/30/2020 11:56 AM . Narrative 05/30/2020 11:56 AM CDT BILATERAL SCREENING MAMMOGRAM DATE: 05/29/2020 9:25 AM. COMPARISON: Multiple prior mammograms, most recently 2016 and from [facility] dated 2006. HISTORY: Screening [...] study. Jose J Corcoran MD MAMMO ORDERABLES Final Resu lt from Last 3 Months or Most Recently Relevant to Health Maintenance Insurance [employer] * Guarantor: ANONYMOUS DONOR Account Type Relation to Patient Date of Phone Billing Address Living Donor Transplant Recipient LIVING DONOR Care Teams Plywood And Veneer Repairer Relationship Specialty Start Date End Date Trinity Goldstein, PATTERN GRADER SUPERVISOR-TOOL LIAISON [address] [place] [id number] PCP - General Nurse Practitioner 02/05/23
--- OUTSIDE RECORDS SUMMARY | 2025-01-10 00:44 | XMS_ITS | Data Portability ---
Author Organization [place] [facility], Zain Sumner Address [address] [place] [address] Assessment No assessment recorded. Plan of Treatment Reminders Order Date Submit Date Provider Last Modified By Organization Details Last Modified Time Details Appointments InPerson; PE, Routine 2024 01:00P Salma Goldstein NP Not available Not available Not available Lab CBC w/ auto diff 2023 024 [facility] ([place]), [address] [place], [address], 05/19/2024 08:26:47 CMP, serum or plasma 2023 024 [facility] ([place]), [address] [place], [address], 05/19/2024 08:26:48 lipid panel, serum 2023 024 [facility] [address] [place], [address], 05/19/2024 08:26:49 HbA1c (hemoglob in A1c), blood 2023 024 [facility] ([place]), [address] [place], [address], 05/19/2024 08:26:49 Referral physical therapist referral - back pain since 08/2024 with exacerbat ion 11/13/242024 025 [facility], [address], [place], [address], 11/19/2024 11:23:32 Procedures colonosco py procedure (PROC) - Last done 2018- polyps. 5 year follow up. [address] [facility], [address], [id number], [place], [address], 07/24/2024 16:59:01 Surgeries None recorded. Imaging MAMMO, screening , bilateral 2023 [facility], [address], [place], [address], 12/01/2024 09:41:55 Medication Orders cyclobenz aprine 5 mg tablet 2023 [facility], [address] [place] [address], [address], 09/05/2024 14:51:16 pantopraz ole 40 mg tablet,de layed release 2023 [facility], [address] [place] [address], [address], 08/09/2024 10:41:32 pantopraz ole 20 mg tablet,de layed release 2023 [facility], [address] [place] [address], [address], 08/09/2024 10:41:19 Patient TargetsNo targets recorded. Patient InstructionsNo instructions recorded. Reason for Referral Physical Therapist Referral for Backache back pain since 08/2024 with exacerbation 11/13/24 Referring Physician: Trinity Goldstein, Family Medicine, Encounter Date: 11/14/2024 Results Created Date Observation Date Name Description Value Unit Range Abnormal Flag Note LastModifiedBy Organization Detail LastModifiedTime 05/18/2005/19/2024 CBC WITH DIFFE RENTI AL/PL ATELE T WBC 7.0 x10e3 /uL 3.4-10 .8 normal Not Available [facility] ([facility]) [address] [facility], [place], [address], 05/19/2024 08:26:47 05/18/20 24 05/19/2024 CBC WITH DIFFE RENTI AL/PL ATELE T RBC 4.96 x10e6 /uL 3.77-5 .28 normal Not Available [facility] ([facility]) [address] [facility], [place], [address], 05/19/2024 08:26:47 05/18/20 24 05/19/2024 CBC WITH DIFFE RENTI AL/PL ATELE T hemoglobin 15.2 g/dL 11.1-1 5.9 normal Not Available [facility] ([facility]) [address] [facility], [place], [address], 05/19/2024 08:26:47 05/18/20 24 05/19/2024 CBC WITH DIFFE RENTI AL/PL ATELE T hematocrit 46.2 % 34.0-4 6.6 normal Not Available [facility] ([facility]) [address] [facility], [place], [address], 05/19/2024 08:26:47 05/18/20 24 05/19/2024 CBC WITH DIFFE RENTI AL/PL ATELE T MCV 93 fL 79-97 normal Not Available [facility] ([facility]) [address] [place], [address], 05/19/2024 08:26:47 05/18/20 24 05/19/2024 CBC WITH DIFFE RENTI AL/PL ATELE T MCH 30.6 pg 26.6-3 3.0 normal Not Available [facility] ([facility]) [address] [facility], [place], [address], 05/19/2024 08:26:47 05/18/20 24 05/19/2024 CBC WITH DIFFE RENTI AL/PL ATELE T MCHC 32.9 g/dL 31.5-3 5.7 normal Not Available [facility] ([facility]) [address] [facility], [place], [address], 05/19/2024 08:26:47 05/18/20 24 05/19/2024 CBC WITH DIFFE RENTI AL/PL ATELE T RDW 12.3 % 11.7-1 5.4 Not Available [facility] ([facility]) [address] [facility], [place], [address], 05/19/2024 08:26:47 05/18/20 24 05/19/2024 CBC WITH DIFFE RENTI AL/PL ATELE T platelets 227 x10e3 /uL 150-45 0 normal Not Available [facility] ([facility]) [address] [facility], [place], [address], 05/19/2024 08:26:47 05/18/20 24 05/19/2024 CBC WITH DIFFE RENTI AL/PL ATELE T neutrophils 61 % not estab. normal Not Available [facility] ([facility]) [address] [facility], [place], [address], 05/19/2024 08:26:47 05/18/20 24 05/19/2024 CBC WITH DIFFE RENTI AL/PL ATELE T lymphs 28 % not estab. normal Not Available [facility] ([facility]) [address] [facility], [place], [address], 05/19/2024 08:26:47 05/18/20 24 05/19/2024 CBC WITH DIFFE RENTI AL/PL ATELE T monocytes 8 % not estab. normal Not Available [facility] ([facility]) [address] [facility], [place], [address], 05/19/2024 08:26:47 05/18/20 24 05/19/2024 CBC WITH DIFFE RENTI AL/PL ATELE T eos 2 % not estab. normal Not Available [facility] ([facility]) [address] [facility], [place], [address], 05/19/2024 08:26:47 05/18/20 24 05/19/2024 CBC WITH DIFFE RENTI AL/PL ATELE T basos 1 % not estab. normal Not Available [facility] ([facility]) [address] [place], [address], 05/19/2024 08:26:47 05/18/20 24 05/19/2024 CBC WITH DIFFE RENTI AL/PL ATELE T immature cells ENGINEERING GEOLOGIST Not Available [facility] ([facility]) [address] [place], [address], 05/19/2024 08:26:47 05/18/20 24 05/19/2024 CBC WITH DIFFE RENTI AL/PL ATELE T neutrophils (absolute) 4.3 x10e3 /uL 1.4-7. 0 normal Not Available [facility] ([facility]) [address] [place], [address], 05/19/2024 08:26:47 05/18/20 24 05/19/2024 CBC WITH DIFFE RENTI AL/PL ATELE T lymphs (absolute) 2.0 x10e3 /uL 0.7-3. 1 normal Not Available [facility] ([facility]) [address] [place], [address], 05/19/2024 08:26:47 05/18/20 24 05/19/2024 CBC WITH DIFFE RENTI AL/PL ATELE T monocytes(ab solute) 0.6 x10e3 /uL 0.1-0. 9 normal Not Available [facility] ([facility]) [address] [place], [address], 05/19/2024 08:26:47 05/18/20 24 05/19/2024 CBC WITH DIFFE RENTI AL/PL ATELE T eos (absolute) 0.1 x10e3 /uL 0.0-0. 4 normal Not Available [facility] ([facility]) [address] [place], [address], 05/19/2024 08:26:47 05/18/20 24 05/19/2024 CBC WITH DIFFE RENTI AL/PL ATELE T baso (absolute) 0.1 x10e3 /uL 0.0-0. 2 normal Not Available [facility] ([facility]) [address] [facility], [place], [address], 05/19/2024 08:26:47 05/18/20 24 05/19/2024 CBC WITH DIFFE RENTI AL/PL ATELE T immature granulocytes 0 % not estab. Not Available [facility] ([facility]) [address] [facility], [place], [address], 05/19/2024 08:26:47 05/18/20 24 05/19/2024 CBC WITH DIFFE RENTI AL/PL ATELE T immature grans (abs) 0.0 x10e3 /uL 0.0-0. 1 Not Available [facility] ([facility]) [address] [facility], [place], [address], 05/19/2024 08:26:47 05/18/20 24 05/19/2024 CBC WITH DIFFE RENTI AL/PL ATELE T NRBC ENGINEERING GEOLOGIST Not Available [facility] ([facility]) [address] [facility], [place], [address], 05/19/2024 08:26:47 05/18/20 24 05/19/2024 CBC WITH DIFFE RENTI AL/PL ATELE T hematology comments: ENGINEERING GEOLOGIST Not Available [facility] ([facility]) [address] [facility], [place], [address], 05/19/2024 08:26:47 05/18/20 24 05/19/2024 COMP. METAB OLIC PANEL (14) glucose 97 mg/dL 70-99 normal Not Available [facility] ([facility]) [address] [facility], [place], [address], 05/19/2024 08:26:48 05/18/20 24 05/19/2024 COMP. METAB OLIC PANEL (14) BUN 12 mg/dL 6-24 normal Not Available [facility] ([facility]) [address] [facility], [place], [address], 05/19/2024 08:26:48 05/18/20 24 05/19/2024 COMP. METAB OLIC PANEL (14) creatinine 0.78 mg/dL 0.57-1 .00 normal Not Available [facility] ([facility]) [address] [facility], [place], [address], 05/19/2024 08:26:48 05/18/20 24 05/19/2024 COMP. METAB OLIC PANEL (14) eGFR 87 mL/mi n/1.7 3 >59 normal Not Available [facility] ([facility]) [address] [facility], [place], [address], 05/19/2024 08:26:48 05/18/20 24 05/19/2024 COMP. METAB OLIC PANEL (14) BUN/creatini ne ratio 15 9-23 normal Not Available [facility] ([facility]) [address] [facility], [place], [address], 05/19/2024 08:26:48 05/18/20 24 05/19/2024 COMP. METAB OLIC PANEL (14) sodium 141 mmol/ L 134-14 4 normal Not Available [facility] ([facility]) [address] [place], [address], 05/19/2024 08:26:48 05/18/20 24 05/19/2024 COMP. METAB OLIC PANEL (14) potassium 4.1 mmol/ L 3.5-5. 2 normal Not Available [facility] ([facility]) [address] [facility], [place], [address], 05/19/2024 08:26:48 05/18/20 24 05/19/2024 COMP. METAB OLIC PANEL (14) chloride 102 mmol/ L 96-106 normal Not Available [facility] ([facility]) [address] [place], [address], 05/19/2024 08:26:48 05/18/20 24 05/19/2024 COMP. METAB OLIC PANEL (14) carbon dioxide, total 23 mmol/ L 20-29 normal Not Available [facility] ([facility]) [address] [place], [address], 05/19/2024 08:26:48 05/18/20 24 05/19/2024 COMP. METAB OLIC PANEL (14) calcium 9.7 mg/dL 8.7-10 .2 normal Not Available [facility] ([facility]) [address] [place], [address], 05/19/2024 08:26:48 05/18/20 24 05/19/2024 COMP. METAB OLIC PANEL (14) protein, total 7.3 g/dL 6.0-8. 5 normal Not Available [facility] ([facility]) [address] [facility] [place], [address], 05/19/2024 08:26:48 05/18/20 24 05/19/2024 COMP. METAB OLIC PANEL (14) albumin 4.8 g/dL 3.8-4. 9 normal Not Available [facility] ([facility]) [address] [facility] [place], [address], 05/19/2024 08:26:48 05/18/20 24 05/19/2024 COMP. METAB OLIC PANEL (14) globulin, total 2.5 g/dL 1.5-4. 5 Not Available [facility] ([facility]) [address] [facility] [place], [address], 05/19/2024 08:26:48 05/18/20 24 05/19/2024 COMP. METAB OLIC PANEL (14) bilirubin, total 0.5 mg/dL 0.0-1. 2 normal Not Available [facility] ([facility]) [address] [facility] [place], [address], 05/19/2024 08:26:48 05/18/20 24 05/19/2024 COMP. METAB OLIC PANEL (14) alkaline phosphatase 84 IU/L 44-121 normal Not Available [facility] ([facility]) [address] [facility] [place], [address], 05/19/2024 08:26:48 05/18/20 24 05/19/2024 COMP. METAB OLIC PANEL (14) AST (SGOT) 21 IU/L 0-40 normal Not Available [facility] ([facility]) [address] [facility] [place], [address], 05/19/2024 08:26:48 05/18/20 24 05/19/2024 COMP. METAB OLIC PANEL (14) ALT (SGPT) 31 IU/L 0-32 normal Not Available [facility] ([facility]) [address] [facility] [place], [address], 05/19/2024 08:26:48 05/18/20 24 05/19/2024 LIPID PANEL WITH LDL/H DL RATIO cholesterol, total 261 mg/dL 100-19 9 above high normal Not Available [facility] ([facility]) [address] [place], [address], 05/19/2024 08:26:49 05/18/20 24 05/19/2024 LIPID PANEL WITH LDL/H DL RATIO triglyceride s 349 mg/dL 0-149 above high normal Not Available [facility] ([facility]) [address] [facility] [place], [address], 05/19/2024 08:26:49 05/18/20 24 05/19/2024 LIPID PANEL WITH LDL/H DL RATIO HDL cholesterol 61 mg/dL >39 normal Not Available [facility] ([facility]) [address] [place], [address], 05/19/2024 08:26:49 05/18/20 24 05/19/2024 LIPID PANEL WITH LDL/H DL RATIO VLDL cholesterol christopher 63 mg/dL 5-40 above high normal Not Available [facility] ([facility]) [address] [place], [address], 05/19/2024 08:26:49 05/18/20 24 05/19/2024 LIPID PANEL WITH LDL/H DL RATIO LDL chol calc ([facility]) 137 mg/dL 0-99 above high normal Not Available [facility] ([facility]) [address] [place], [address], 05/19/2024 08:26:49 05/18/20 24 05/19/2024 LIPID PANEL WITH LDL/H DL RATIO LDL calc comment: ENGINEERING GEOLOGIST Not Available [facility] ([facility]) [address] [place], [address], 05/19/2024 08:26:49 05/18/20 24 05/19/2024 LIPID PANEL WITH LDL/H DL RATIO LDL/HDL ratio 2.2 ratio 0.0-3. 2 LDL/H DL Ratio Men Women 1/2 Avg.R isk 1.0 1.5 Avg.R isk 3.6 3.2 2X Avg.R isk 6.2 5.0 3X Avg.R isk 8.0 6.1 Not Available [facility] ([facility]) [address] [place], [address], 05/19/2024 08:26:49 05/18/20 24 05/19/2024 HEMOG LOBIN A1C hemoglobin A1C 5.5 % 4.8-5. 6 normal Predi abete s: 5.7 - 6.4 Diabe robyn: >6.4 Glyce curtis contr ol for adult s with diabe robyn: <7.0 Not Available [facility] ([facility]) [address] [place], [address], 05/19/2024 08:26:49 12/02/19 25 12/01/2024 MAMMO , scree ines, bilat eral No observ ation record ed. [address], [place], [address], 12/01/2024 14:29:28 Result Notes None recorded. Problems Name Problem SNOMED Code Status Onset Date Resolution Date Notes Provider Name and Address Organization Details Recorded Time Absence Completed 020 01/06/2024 None; PROBABIL ITY: 0 Confir mation: Confirme d Annota tedDispl ay: None Cla ssificat ion: Medical Not Available [facility] 18:04:41 Problem Notes None recorded. Procedures Surgical History None recorded. Imaging Results Imaging Date Name Status LastModified by Organiz ation Details LastModified Time 12/01/2024 MAMMO, screening, bilateral completed [address], [place], [address], 12/01/2024 14:29:28 Procedure Notes None recorded. Medical Equipment None Reported. Allergies Allergen ID Allergen Name Allergen Category Reaction Reaction Severity Criticality Documentation Date Start Date Code Code System Note Provider Name and Address Organization Details Recorded Time 539850 No Allergy Informati on Available Not available Not available Not available Not available 01/06/2024 98597 UNK Comme nt: React ion Class : Aller gy; Not Available [facility] 17:38:47 No known drug allergies Medications Name Sig Start Date Stop Date Status Note LastModified by Organization Details LastModified Time pantoprazol e 20 mg tablet,jolene yed release Take 1 tablet every day by oral route in the morning. 08/08 completed Not Available Not Available Not Available pantoprazol e 40 mg tablet,jolene yed release Take 1 tablet every day by oral route as directed for 14 days. 08/08 completed Not Available Not Available Not Available cyclobenzap rine 5 mg tablet 1-2 tablet by mouth up to every 8 hours as needed for back pain / spasm. active Not Available Not Available No t Available Vitals Date Recorded Body height Body mass index (BMI) Body weight Respiratory rate Body temperature Heart rate Systolic blood pressure Diastolic blood pressure Provider Name and Address Organization Details Last Updated DateTime 4 170.18 cm 28.2 kg/m2 92697.6 3 g 16 /min 97.9 [degF] 76 /min 135 mm[Hg] 92 mm[Hg] Dmitry Temple [place] [facility] 4 15:03:53 Date Recorded Systolic blood pressure Diastolic blood pressure Provider Name and Address Organization Details Last Updated DateTime 2024 133 mm[Hg] 88 mm[Hg] Trinity Goldstein, SADIE [address], [facility], [address], [place] [facility] 2024 15:32:42 Social History Question Answer Notes LastModified by Organizat ion Details LastModified Time Tobacco Smoking Status Never Smoker Dmitry Temple null, [place] [facility] 2024 15:02:29 What Is Your Level Of Alcohol Consumption? Occasional [email or web address] Information not available 2024 What Is Your Level Of Caffeine Consumption? Occasional [email or web address] Information not available 2024 In The 14 Days Before Symptom Onset, Have You Had Close Contact With A Laboratory-confirm ed COVID-19 While That Case Was Ill? No [email or web address] Information n ot available 2024 In The 14 Days Before Symptom Onset, Have You Had Close Contact With A Person Who Is Under Investigation For COVID-19 While That Person Was Ill? No Information not available 2024 Have You Been To An Area Known To Be High Risk For COVID-19? No Information not available 2024 Sex: Unknown Functional Status None recorded. Mental Status None recorded. Family History Relationship Description Onset Age of this Age Resolved Age Notes LastModified by Organization Details LastModified Time Father No current problems or disability [email or web address] Not available 05/18 15:01:55 Mother No current problems or disability [email or web address] Not available 05/18 15:01:55 Medical History No medical history recorded. Gynecological HistoryNo gynecological history recorded. Obstetrics History GPAL:G 0 P 0 0 0 0 Immunizations Vaccine Type Date Status Note Provider Nam e and Address Organization Details Recorded Time COVID-19, mRNA, LNP-S, PF, 30 mcg/0.3 mL dose 10/14/2020 completed Trinity Goldstien NP [address], [place], [address], [place] [facility] 2024 15:17:21 COVID-19, mRNA, LNP-S, PF, 30 mcg/0.3 mL dose 11/07/2020 completed Trinity Goldstein NP [address], [place], [address], [place] [facility] 2024 15:17:21 Past Encounters Encounter ID Performer Location Encounter Start Date Encounter Closed Date Diagnosis/Indication Diagnosis SNOMED-CT Code Diagnosis ICD10 Code Diagnosis Note [id number] [place] [address] 2024 14:53:37 2024 16:44:22 Adult health examination 736526648 Z00.00 Briefly discussed healthy diet and regular exercise. Encouraged to be tobacco free. Encouraged to avoid binge drinking or more than 2 drinks per day. Annual eye exam and biannual dental cleanings recommende d. Discussed recommende d vaccines and screenings per HPI. Discussed option to follow up with physician in 2 weeks for new conditions . Gastroesop hageal reflux disease 117033760 K21.9 Consider reduction in alcohol intake.Dec lines H pylori test today - she does not have time today.Star t PPI 40mg x 14 days then step down to 20mg daily and can wean from there.If symptoms do not resolve we will consider EGD to be done with colonoscop y that is also due. Screening for malignant neoplasm of breast 841360781 Z12.39 History of polyp of colon 363644388 Z86.010 Due for repeat [id number] SADIE [address]andra [address] [place] [address] 08/08/2024 14:02:35 08/08/2024 14:16:48 Gastroesophageal reflux disease without esophagitis 628447562 K21.9 Resolved currently. Follow up with annual physical in 04/2025 or sooner as needed. [id number] SADIE [address] [place] [address] 09/05/2024 14:38:55 09/05/2024 14:59:51 Backache 464933320 M54.9 NSAIDS: ibuprofen 600mgTID +/- 1000mg tylenol every 8 hours. Take with food or milk.Muscl e relaxers - discussed R/B/SE.Lig ht activity. Moist heat.Refer ral to physical therapy if not improving by next week.Discu ssed red flag signs and when to seek higher level of care.RTC as needed. [id number] SADIE [address] [place] [address] 11/14/2024 12:44:46 11/14/2024 13:52:09 Backache 541535298 M54.9 Continue NSAIDs and muscle relaxer only as needed.Ref erral to physical therapy.Di scussed red flag signs and when to seek higher level of care.Call if not improving in 4 weeks of regular physical therapy. Health Concerns Section Related Observation LastModified by Organization Detai ls LastModified Time None Recorded Concern Status LastModified by Organization Details LastModified Time None Recorded Advance Directives Directive None Recorded Payers Encounter Date Sequence Insurance Name Policy Number Policy Burton Covered Member ID Burton Member ID Guarantor Name 2024 1 [facility] PROJECT SCHEDULER - CHP [id number] Elvis Evans [id number] Flora Evans 08/08/2024 1 [facility] [id number] Elvis Evans [id number] Flora Evans 09/05/2024 1 [facility] [id number] Elvis Evans [id number] Flora Evans 11/14/2024 1 [facility] [id number] Elvis Evans [id number] Flora Evans Notes Date Note Type Note Provider Name and Address Organization Details Recorded Time 2024 text/html [facility]Seen here in 2019. 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 Burning in sternum lasts only a few seconds.Eating or drinking water helps relieve pain.Cut out most of her caffiene bu did not help.Has taken intermittent TUMS. Left leg/hip pain catches with turning- quick sharp pain. Noted after pushing a heavy object with her left leg months ago but overall feeling better. 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 non Dental Care: regular 6 month cleaningsVision Care: due for annual exam, uses readers. ImmunizationsFlu shot: annuallyTdap: scheduled in [place]: n/aCOVID: planning annual boosterShingrix: will consider- discussed R/B/SE Recommended [facility]ings[facility] with GYNColonoscopy: 2017- small polyps - repeat in [address] Pena.Lung cancer screen ( age > 50 & 20 pack yr hx):HCV/HIV Screen: negative Had kidney donor work up in 2021 - her sister ended up donating. Trinity Goldstein NP [address], [place], [address], [place] [facility] 2024 16:08:06 08/08/2024 text/html Name and wer e confirmed.Verbalized consent for virtual visit.Patient confirms they are in [place] or [place] where provider is licensed. Follow up on Heartburn for about 6 months that she mentioned at physical in April.Had burning in sternum lasts only a few seconds.Eating or drinking water helped relieve pain.Cut out most of her caffeine but did not help.Was taking intermittent TUMS. Advised reduction in alcohol intake.Took PPI 40mg x 14 days then step down to 20mg daily and she stopped after a month without return of symptoms. Feels A lot better only has symptoms briefly. Mammo scheduled in november 2024 (says that was next available appt)Colonoscopy scheduled 09/25/2023 Trinity Goldstein NP [address], [place], [address], [place] [facility] 08/08/2024 14:12:19 09/05/2024 text/html Name and wer e confirmed.Verbalized consent for virtual visit.Patient confirms they are in [place] or [place] where provider is licensed. Yesterday she felt lower back soreness and last evening had a sharp lumbar pain while taking toenail zambian. Was unable to move without assistance and having locking/freezing of muscle. Feeling much better today but traveling this week and worried about if symptoms were to worsen. Similar back pain happens about twice per year. Takes fish oil and calcium supplement.Has been using ibuprofen with improvement in symptoms. Trinity Goldstein NP [address], [place], [address], [place] [facility] 09/05/2024 14:53:36 11/14/2024 text/html Name and wer e confirmed. Verbalized consent for virtual visit. Patient confirms they are in [place] or [place] where provider is licensed. Injured back in August - Sensitive and sore times. Twisted funny yesterday and lower right back is more bothersome. Using cyclobenzaprine as needed (used last night) Using aspirin during the day. Active during the day, does steps but no formal exercise No extremity weakness. No loss of bowel or bladder control. No fevers, chills or sick symptoms. No history of cancer. Trinity Goldstein NP [address], [place], [address], [place] [facility] 11/14/2024 12:58:26 OBGyn Episode No OBEpisode recorded.
--- OUTSIDE RECORDS SUMMARY | 2025-01-10 00:44 | XMS_ITS | Encounter Summary ---
Author Organization [facility] Address [address] [place] [address] Care Team Providers Care Roofing Tile Sorter Name Role Phone Rayo Sierra MD Primary Care Provider [phone] Trinity Goldstein APRN-SENIOR SYSTEMS ANALYST Primary Care Provider [phone] Encounter Details Date Type Department Care Team (Late st Contact Info) Description 07/27/2018 Lab Requisition [facility] [address] [place] [phone] Unlisted, Ordering Provider, Social History Tobacco Use Types Packs/Day Years Used Date Smoking Tobacco: Never Assessed Comments Unknown Sex and Gender Information Value Date Recorded Sex Assigned at Not on file Legal Sex Female 5:17 PM UNDERGRADUATE ADVISOR Gender Identity Not on file Sexual Orientation Not on file documented as of this encounter Plan of Treatment Not on file documented as of this encounter Procedures Procedure Name Priority Date/Time Associated Diagnosis Comments GLUCOSE VITALITY Routine 07/29/2018 9:46 AM UNDERGRADUATE ADVISOR HEMOGLOBIN A1C Routine 07/29/2018 9:46 AM UNDERGRADUATE ADVISOR LIPID PROFILE Routine 07/29/2018 9:46 AM UNDERGRADUATE ADVISOR documented in this encounter Results * HEMOGLOBIN A1C (07/29/2018 9:46 AM UNDERGRADUATE ADVISOR) Hemoglobin A1c 5.3 4.4 - 6.3 % 07/29/2018 2:22 PM UNDERGRADUATE ADVISOR [facility] Estimated Average Glucose 105 mg/dL 07/29/2018 2:22 PM UNDERGRADUATE ADVISOR [facility] Comment: HbA1c Interpretation: Treatment target values recommended by ADA and other clinical organizations should be used to evaluate metabolic control in patients. Treatment Target Values: Normal : < 5.7% Pre-diabetes: 5.7-6.4% Diabetes: Equal to or greater than 6.5% Reference: [place] [employer] Standards of Care in Diabetes -2014 In patients 70 years and older consider HbA1c target range of 7.0-7.5% Reference: Diabetes Mellitus in Older People: Position Statement on behalf of the International Association of Gerontology and Geriatrics (IAGG), the Diabetes Working Alliance Party for Older People (EDWPOP), and the International Task Force of Experts in Diabetes. Damian Carballo, et al. J [place] [employer] Association. 2012 Test results diagnostic of diabetes should be repeated for confirmation. The Tosoh G8 assay for the measurement of HbA1c is a National Glycohemoglobin Standardization Program (NGSP)certified method. Results for patients with HbE disease should be interpreted with caution as this hemoglobinopathy has been shown to interfere with the Tosoh G8 assay. Blood BLOOD SPECIMEN / Unknown 07/29/2018 9:46 AM UNDERGRADUATE ADVISOR 07/29/2018 12:17 PM UNDERGRADUATE ADVISOR us Ordering Provider Unlisted MD LAB - CHEMISTRY OR DERABLES Final Result [address] [phone] * (ABNORMAL) LIPID PROFILE (07/29/2018 9:46 AM UNDERGRADUATE ADVISOR) [facility] Signature Cholesterol Total 272(H) <200 mg/dL 07/29/2018 12:47 PM [facility] HDL 86 >40 mg/dL 07/29/2018 12:47 PM [facility] Comment: ATP III Classification of HDL Cholesterol: <40 mg/dL: Considered a major risk factor. >60 mg/dL: Considered a negative risk factor. LDL Calculated 161(H) <100 mg/dL 07/29/2018 12:47 PM [facility] Comment: ATP III Classification of LDL Cholesterol: <100 mg/dL: Optimal 100 - 129 mg/dL: Near Optimal/Above Optimal 130 - 159 mg/dL: Borderline High 160 - 189 mg/dL: High >190 mg/dL: Very High Triglycerides 127 <150 mg/dL 07/29/2018 12:47 PM UNDERGRADUATE ADVISOR [facility] Comment: ATP III Classification of Triglycerides: <150 mg/dL: Normal 150 - 199 mg/dL: Borderline High 200 - 400 mg/dL: High >500 mg/dL: Very High Blood BLOOD SPECIMEN / Unknown 07/29/2018 9:46 AM UNDERGRADUATE ADVISOR 07/29/2018 12:17 PM UNDERGRADUATE ADVISOR us Ordering Provider Unlisted MD LAB - CHEMISTRY OR DERABLES Final Result Performing Organization Address City/[facility]/ZIP Co de Phone Number [address] [phone] * GLUCOSE VITALITY (07/29/2018 9:46 AM UNDERGRADUATE ADVISOR) [facility] Signature Glucose 94 70 - 115 mg/dL 07/29/2018 12:39 PM UNDERGRADUATE ADVISOR [facility] Blood BLOOD SPECIMEN / Unknown 07/29/2018 9:46 AM UNDERGRADUATE ADVISOR 07/29/2018 12:17 PM UNDERGRADUATE ADVISOR Ordering Provider Unlisted MD LAB - CHEMISTRY OR DERABLES Final Result [address] [phone] documented in this encounter Visit Diagnoses Not on filedocumented in this encounter Care Teams Roofing Tile Sorter Relationship Specialty Start Date End Date Rayo Sierra MD [address] [place] [phone] PCP - General Internal Medicine 11/27/22 02/04/23 Trinity Goldstein APRN-SENIOR SYSTEMS ANALYST [address] [place] [id number] PCP - General Nurse Practitioner 02/05/23 documented as of this encounter
--- OUTSIDE RECORDS SUMMARY | 2025-01-10 00:44 | XMS_ITS | Encounter Summary ---
Author Organization [facility] Address [address] [place] [address] Care Team Providers Care Fish Egg Packer Name Role Phone Rayo Sierra MD Primary Care Provider [phone] Trinity Goldstein Primary Care Provider [phone] Encounter Details Date Type Department Care Team (Late st Contact Info) Description 06/20/2018 Lab Requisition [facility] [address] [place] [address] Unlisted, Ordering Provider, Social History Tobacco Use Types Packs/Day Years Used Date Smoking Tobacco: Never Assessed Comments Unknown Sex and Gender Information Value Date Recorded Sex Assigned at Not on file Legal Sex Female 5:17 PM 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
--- OUTSIDE RECORDS SUMMARY | 2025-01-10 00:44 | XMS_ITS | Encounter Summary ---
Author Organization [facility] Address [address] [place] [address] Care Team Providers Care Programmable Logic Controller Assembler Name Role Phone Rayo Sierra MD Primary Care Provider [phone] Trinity Goldstein APRN-SEARCH ENGINEER Primary Care Provider [phone] Encounter Details Date Type Department Care Team (Late st Contact Info) Description 07/12/2019 Lab Requisition [facility] [address] [place] [phone] Social History Tobacco Use Types Packs/Day Years Used Date Smoking Tobacco: Never Assessed Comments Unknown Sex and Gender Information Value Date Recorded Sex Assigned at Not on file Legal Sex Female 5:17 PM FISHERIES ENFORCEMENT OFFICER Gender Identity Not on file Sexual Orientation [...] - 6.3 % 07/13/2019 2:20 PM CDT [facility] Estimated Average Glucose 97 mg/dL 07/13/2019 2:20 PM CDT [facility] Comment: HbA1c Interpretation: Treatment target values recommended by ADA and other clinical organizations should be used to evaluate metabolic control in patients. Treatment Target Values: Normal : < 5.7% Pre-diabetes: 5.7-6.4% Diabetes: Equal to or greater than 6.5% Reference: [place] Diabetes Association Standards of Care in Diabetes -2014 In patients 70 years and older consider HbA1c target range of 7.0-7.5% Reference: Diabetes Mellitus in Older People: Position Statement on behalf of the International Association of Gerontology and Geriatrics (IAGG), the Diabetes Working Democrat for Older People (EDWPOP), and the International Task Force of Experts in Diabetes. Damian Carballo, et al. J [place] [employer]. 2012 Test results diagnostic of diabetes should be repeated for confirmation. The Sebia Capillary 2 assay for the measurement of HbA1c is a National Glycohemoglobin Standardization Program (NGSP)certified method. Blood BLOOD SPECIMEN / Unknown Lab Venipuncture / Unknown 07/13/2019 9:12 AM CDT 07/13/2019 10:02 AM CDT us LAB - CHEMISTRY ORDERABLES Final Result [address] [phone] * (ABNORMAL) LIPID PROFILE (07/13/2019 9:12 AM CDT) Cholesterol Total 231(H) <200 mg/dL 07/13/2019 10:55 AM CDT [facility] HDL 80 >40 mg/dL 07/13/2019 10:55 AM T [facility] Comment: ATP III Classification of HDL Cholesterol: <40 mg/dL: Considered a major risk factor. >60 mg/dL: Considered a negative risk factor. LDL Calculated 119(H) <100 mg/dL 07/13/2019 10:55 AM T [facility] Comment: ATP III Classification of LDL Cholesterol: <100 mg/dL: Optimal 100 - 129 mg/dL: Near Optimal/Above Optimal 130 - 159 mg/dL: Borderline High 160 - 189 mg/dL: High >190 mg/dL: Very High Triglycerides 158(H) <150 mg/dL 07/13/2019 10:55 AM CDT [facility] Comment: ATP III Classification of Triglycerides: <150 mg/dL: Normal 150 - 199 mg/dL: Borderline High 200 - 400 mg/dL: High >500 mg/dL: Very High Blood BLOOD SPECIMEN / Unknown Lab Venipuncture / Unknown 07/13/2019 9:12 AM CDT 07/13/2019 10:02 AM CDT us LAB - CHEMISTRY ORDERABLES Final Result [address] [phone] * GLUCOSE VITALITY (07/13/2019 9:12 AM CDT) Glucose 79 70 - 115 mg/dL 07/13/2019 10:37 AM CDT [facility] Blood BLOOD SPECIMEN / Unknown Lab Venipuncture / Unknown 07/13/2019 9:12 AM CDT 07/13/2019 10:03 AM CDT us LAB - CHEMISTRY ORDERABLES Final Result Performing Organization Address City/[facility]/ZIP Co de Phone Number [address] [phone] documented in this encounter Visit Diagnoses Not on filedocumented in this encounter Care Teams Programmable Logic Controller Assembler Relationship Specialty Start Date End Date Rayo Sierra MD [address] [place] [phone] PCP - General Internal Medicine 11/27/22 02/04/23 Trinity Goldstein, PUMP TECHNICIAN-SEARCH ENGINEER [address] [place] [phone] PCP - General Nurse Practitioner 02/05/23 documented as of this encounter
--- OUTSIDE RECORDS SUMMARY | 2025-01-10 00:44 | XMS_ITS | Encounter Summary ---
Author Organization [facility] Address [address] [place] [address] Care Team Providers Care Valver Name Role Phone Rayo Sierra MD Primary Care Provider [phone] Trinity Goldstein Primary Care Provider [phone] Encounter Details Date Type Department Care Team (Late st Contact Info) Description 01/12/2023 Telephone 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
[2025-01-10 07:17] VITALS: BP 123/74; PULSE 78; RESP 16; TEMP 36.3; O2SAT 99
[2025-01-10] MEDS: LACTATED RINGERS 1,000 ML 150 ML IV CONT (07:29)
--- NOTE | 2025-01-10 08:31 | P.HP_ITS ---
H&P: HPI History of Present Illness Date/Time: 01/10/25 08:31 Chief Complaint: History of colon polyps Narrative: The patient has a history of colonic polyps, the last colonoscopy was 5 years ago. Review of Systems Review of Systems: All systems reviewed & are unremarkable except as noted in HPI and below [facility] Social History Social History (System 12/08/24 @ 10:31 by Hardeep Calhoun) Smoking status: Never smoker Second hand tobacco smoke exposure: No Alcohol intake: current Living arrangements: with family Spiritual care concerns: No Meds Home Medications and Allergies Home Medications ?Medication ?Instructions ?Recorded ?Confirmed ?Type No Home Medications 12/29/24 12/29/24 History Allergies Allergy/AdvReac Type Severity Reaction Status Date / Time No Known Allergies Allergy Unknown Verified 01/10/25 07:16 Vital Signs Vital Signs - 24 hr 01/10/25 07:17 Temperature 97.3 F L Pulse Rate 78 Respiratory Rate 16 Blood Pressure 123/74 Pulse Oximetry 99 Oxygen Delivery Room Air Exam Const: General: cooperative and healthy appearing Resp: Effort & Inspection: normal respiratory effort and able to speak in complete sentences Auscultation: clear to auscultation bilaterally Cardio: Rate: regular rate Rhythm: regular rhythm GI: Inspection: normal to inspection GI Palp: No No hepatosplenomegaly present Auscultation: normal bowel sounds Rectal Exam: deferred Skin: General skin exam: normal color Psych: Appearance: grossly normal Mental Status: mental status grossly normal Assessment and Plan Assessment and plan (1) History of colonic polyps: Code(s): Z86.0100 - Personal history of colon polyps, unspecified Status: Acute Assessment and Plan: The patient is deemed a good candidate for the procedure. Consent signed. Will proceed.
[2025-01-10 08:48] VITALS: BP 119/77; PULSE 72; RESP 22; O2SAT 99
[2025-01-10 08:58] VITALS: BP 123/83; PULSE 69; RESP 25; O2SAT 99
[2025-01-10 09:08] VITALS: BP 122/81; PULSE 64; RESP 22; O2SAT 99
== END 2025-01-10 09:20 | disposition home or self-care (01) ==
PROVIDERS: Visit Provider Internal Medicine Gastroenterology
PROC: 0DJD8ZZ Inspection of Lower Intestinal Tract, Via Natural or Artificial Opening Endoscopic (ICD-10-PCS; CPT 45378; principal; 2025-01-10 08:30)
DX: Z12.11 Encounter for screening for malignant neoplasm of colon (principal); Z86.0100 Personal history of colon polyps, unspecified
CPT/HCPCS: 45378; J2003; J2704; J7120